=== PATIENT | female | born 1945 | race Caucasian/White ===

== ENCOUNTER → 2019-08-23 | Outpatient (CLI) | payer SELFPAY | PROVIDERS: Family Provider Nurse Practitioner Family; Visit Provider Specialist | DX: R91.8 Other nonspecific abnormal finding of lung field (principal); I25.10 Atherosclerotic heart disease of native coronary artery without angina pectoris; Z98.84 Bariatric surgery status; K80.20 Calculus of gallbladder without cholecystitis without obstruction | CPT/HCPCS: 71250 ==

== ENCOUNTER → 2019-09-26 11:08 | Outpatient (BNVA) | payer MEDICARE, OTHER, SELFPAY | PROVIDERS: Family Provider Nurse Practitioner Family; PCP Nurse Practitioner; Visit Provider Nurse Practitioner | DX: E11.9 Type 2 diabetes mellitus without complications (principal); I10 Essential (primary) hypertension; R82.90 Unspecified abnormal findings in urine | CPT/HCPCS: 80053; 80061; 81003; 83036; 85025; 87077; 87086; 87186 ==

== ENCOUNTER 2019-10-20 13:07 | Outpatient (CLI) | payer MEDICARE, OTHER, SELFPAY ==
--- NOTE | 2019-10-20 14:51 | XR_ITS ---
WS: [id number] SCREENING DEXA SCAN [facility] [employer] [facility] CLINICAL IN[facility] COMPARISON: April 03, 2015 FINDINGS: The L1-L4 bone mineral density measures 1.253 g/cm2. This corresponds to a T score score of 0.6 and Z score of 1.2. Left femoral neck bone mineral density measures 0.939 g/cm2. This corresponds to a T score of -0.5 an d Z score of 0.3. Right femoral neck bone mineral density measures 0.832 g/cm2. This corresponds to a T score -1.4of an d Z score of -0.6. Mean femoral neck bone mineral density measures 0.885 g/cm2. This corresponds to a T score of -1.0 an d Z score of -0.1. XR/XR DEXA axial skeleton* [id number] IMPRESSION: Osteopenia at the lower end of the range Patient's FRAX calculated 10 year probability for major osteoporotic fracture i s 13.9 % and osteoporotic hip fracture is 2.1%.
== END 2019-10-20 13:08 | disposition home or self-care (01) ==
PROVIDERS: Family Provider Nurse Practitioner Family; PCP Nurse Practitioner; Visit Provider Nurse Practitioner
DX: Z13.820 Encounter for screening for osteoporosis (principal)
CPT/HCPCS: 77080

== ENCOUNTER 2019-11-07 09:53 | Outpatient (CLI) | payer MEDICARE, OTHER, SELFPAY ==
--- NOTE | 2019-11-07 09:58 | MM_ITS ---
WS: [id number] BILATERAL DIGITAL SCREENING MAMMOGRAM WITH CAD CLINICAL INFORMATION: SCREENING HISTORY: Screening mammogram. No current complaints. COMPARISON: May 28, 2018 TECHNIQUE: Bilateral CC and MLO views. FINDINGS: Fatty-replaced breasts bilaterally. No suspicious focal mass, asymmetry, calcifications, or software solutions architect ural distortion. [employer] centered calcifications. No evidence of malignancy. MM/[place] [id number] IMPRESSION: BI-RADS: 2-Benign FOLLOW UP: 1 Year Follow-up Recommend return to annual screening mammography.
== END 2019-11-07 09:54 | disposition home or self-care (01) ==
LOC: RADSHAW 09:53
PROVIDERS: Family Provider Nurse Practitioner Family; PCP Nurse Practitioner; Visit Provider Obstetrics & Gynecology
DX: Z12.31 Encounter for screening mammogram for malignant neoplasm of breast (principal)
CPT/HCPCS: 77067

== ENCOUNTER 2020-12-03 12:51 | Outpatient (CLI) | payer MEDICARE, OTHER, SELFPAY ==
--- NOTE | 2020-12-03 12:59 | CT_ITS ---
WS: [id number] CT CHEST TECHNIQUE: Noncontrast CT of the chest with coronal and sagittal reformatted images. CLINICAL INFORMATION: PULMONARY NODULE COMPARISON: August 23, 2019 and . DLP: 1072.[address] scans at [facility] use at least one of these dose optimization techniques: automat ed exposure control; mA and/or kV adjustment per patient size (includes targeted exams where dose is matched to clinical indication); or iterative reconstruction. FINDINGS: Again seen are several small right upper and right lower noncalcified nodules measuring 2-3 mm in max imum dimension. These are unchanged from the prior examinations. No visualized left-sided nodules. No acute pulmonary infiltrates. No focal pneumonia or pleural fluid. Calcified granuloma left upper lob e. No mediastinal or hilar lymphadenopathy. No axillary lymphadenopathy. Vascular calcification includin g coronary. Adrenal glands are normal. Prior laparoscopic banding procedure. Cholelithiasis. Calcifie d gallstone in the gallbladder measuring 2.5 CM. Fatty atrophy of the pancreas. Splenic artery calcif ication. CT/CT chest wo con [id number] IMPRESSION: 1. Stable noncalcified 2-3 mm pulmonary nodules in the right lung. These are s table since 2. Mild chronic emphysematous changes. No acute pulmonary infiltrates. 3. Coronary calcification. 4. Laparoscopic banding procedure. 5. Large gallstone measuring 2.5 cm unchanged.
== END 2020-12-03 12:52 | disposition home or self-care (01) ==
LOC: RADWPI 12:56
PROVIDERS: PCP Nurse Practitioner Family; Visit Provider Specialist
DX: R91.1 Solitary pulmonary nodule (principal); I25.10 Atherosclerotic heart disease of native coronary artery without angina pectoris; K80.80 Other cholelithiasis without obstruction
CPT/HCPCS: 71250

== ENCOUNTER 2020-12-03 13:30 | Outpatient (CLI) | payer MEDICARE, OTHER, SELFPAY ==
--- NOTE | 2020-12-03 13:38 | MM_ITS ---
WS: [id number] BILATERAL SCREENING DIGITAL MAMMOGRAM WITH CAD HISTORY: SCREENING COMPARISON: 11/07/2019 and 05/28/2018 Bilateral CC and MLO views submitted. Computer aided detection analyzed. Breast composition: There are scattered areas of fibroglandular density. No suspicious masses, microc alcifications or architectural distortion. Benign calcifications in each breast. MM/[place] [id number] IMPRESSION: BI-RADS: 2-Benign FOLLOW UP: 1 Year Follow-up
== END 2020-12-03 13:31 | disposition home or self-care (01) ==
LOC: RADSHAW 13:36
PROVIDERS: PCP Nurse Practitioner Family; Visit Provider Obstetrics & Gynecology
DX: Z12.31 Encounter for screening mammogram for malignant neoplasm of breast (principal)
CPT/HCPCS: 77067

== ENCOUNTER 2021-02-22 12:10 | Inpatient (IN) | payer MEDICARE, OTHER, SELFPAY ==
[2021-02-22] VITALS (20 sets, daily range): BP systolic 110–142; BP diastolic 61–113; PULSE 66–169; RESP 15–20; TEMP 36.5–36.6; O2SAT 91–99; BMI 44.9
--- NOTE | 2021-02-22 12:27 | XR_ITS ---
WS: [id number] Portable AP upright chest, 02/22/2021 Clinical Data: new onset afib Comparison: Portable chest, 11/05/2018. Findings: No nodules, masses or effusions are seen. The heart is normal. The pulmonary vascularity is not increased. No pneumonia or pneumothorax is seen. The aortic arch and descending aorta show tortu osity. Monitor leads are on the chest wall. XR/XR chest 1V portable [id number] Impression: Atherosclerosis.
--- NOTE | 2021-02-22 12:27 | ECG_ITS ---
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 Measurements Intervals [place] Rate: 175 P: [place]: QRS: -26 QRSD: 76 T: 136 QT: 245 QTc: 419 Interpretive Statements ATRIAL FIBRILLATION WITH RAPID VENTRICULAR RESPONSE LOW QRS VOLTAGE IN PRECORDIAL LEADS [QRS DEFLECTION < 1.0 mV IN CHEST LEADS] MODERATE VOLTAGE CRITERIA FOR LVH, CONSIDER NORMAL VARIANT [MEETS CRITERIA IN ONE OF: R(aVL), S(V1), R(V5), R(V5/V6)+S(V1)] POSSIBLE ANTEROSEPTAL MYOCARDIAL INFARCTION [30 ms Q WAVE IN V1-V4], PROBABLY OLD MODERATE T-WAVE ABNORMALITY, CONSIDER LATERAL ISCHEMIA [-0.1+ mV T WAVE IN I/aVL/V5/V6] Compared to ECG 11/05/2018 23:34:41 T-wave abnormality now present Possible ischemia now present Myocardial infarct finding still present Electronically Signed On 02-22-2021 21:34:01 CDT by Mike Black M.D. [id number]
[2021-02-22] MEDS: aspirin 81 mg Chew Tablet 324 MG PO (12:42)
[2021-02-22 12:43] LABS: Basophils % 0.5 %; Eosinophils # 0.3 10^3/uL (0.0-0.8); Eosinophils % 3.1 %; Hematocrit 44.2 % (37.0-47.0); Hemoglobin 13.6 g/dL (11.5-15.3); Lymphocytes # 2.3 10^3/uL (0.8-4.8); Lymphocytes % 27.1 %; Mean Corpuscular HGB Conc 30.8 g/dL (30.0-36.0); Mean Corpuscular Hemoglobin 29.1 pg (28.0-34.0); Mean Corpuscular Volume 94.4 fL (81-99); Mean Platelet Volume 10.5 fL (7.4-10.4); Monocytes # 0.5 10^3/uL (0.2-0.9); Monocytes % 5.5 %; Neutrophils # 5.39 10^3/uL (1.8-7.7); Neutrophils % 63.4 %; Nucleated Red Blood Cells % 0 %; Platelet Count 259 10^3/cmm (130-400); Red Blood Count 4.68 10^6/uL (4.1-5.3); Red Cell Distribution Width 15.2 % (12.1-15.1); White Blood Count 8.5 10^3/uL (4.0-10.0)
--- NOTE | 2021-02-22 12:51 | W.ED.ARRPALP ---
HPI - Arrhythmia/Palpitations General: Chief Complaint: Arrhythmia/Palpitations Stated Complaint: poss afib Time Seen by Provider: 02/22/21 12:27 Source: patient Mode of arrival: ambulatory Limitations: no limitations History of Present Illness: HPI narrative: Patient reportedly seen by nurse practitioner at her primary care clinic today and diagnosed with arrhythmia. Patient does not know when arrhythmia started. She does not know when atrial fibrillation started. She has no chest pain or shortness of breath. She had no idea that she had tachycardia. Onset (ago): unknown Duration: constant Severity: mild Context: occurred during rest Arrhythmia history: other (No previous cardiac history.) Associated symptoms: Deny anxiety, cough, diaphoresis, muscle cramps, nausea, paresthesias, pre-syncope, sense of impending doom, short of breath, syncope or vomiting Treatments prior to arrival: other (None) Review of Systems Const: Denies: diaphoresis Eyes: Denies: change in vision ENMT: Denies: throat pain Card: Reports: edema and swelling of feet/ankles; Denies: chest pain, palpitations, irregular heart rhythm, lightheadedness, syncope, pre-syncope, dyspnea on exertion, orthopnea or leg pain with exertion Resp: Denies: dyspnea, wheezing or chest congestion GI: Denies: abdominal pain, nausea or vomiting : Denies: flank pain Musc: Denies: muscle cramps Skin/Breast: Denies: rash or pruritus Neuro: Denies: headache(s) or numbness in extremities Psych: Denies: anxiety Ki/Lymph: Denies: enlarged lymph nodes PFS ED PFSH: Medical History Arrhythmia Diabetes Hypertension Mixed hyperlipidemia Vitamin D deficiency Surgical History LAP-BAND surgery status Social History Smoking and tobacco status: never smoked Second hand smoke exposure: No Alcohol intake: never Desire information about alcohol rehabilitation?: No Counseling given: No Desire information about substance/drug rehabilitation?: No Counseling given: No Physical Exam Const: COMMON NORMALS: no acute distress, patient oriented x3, no limitations and well nourished GENERAL APPEARANCE: cooperative HENMT: COMMON NORMALS: normocephalic and atraumatic HEAD & SCALP: normocephalic and atraumatic FACE & SINUS: normal facial exam Eye: COMMON NORMALS: EOMs intact bilaterally Neck/C-Spine: COMMON NORMALS: full ROM, no lymphadenopathy, supple and no meningeal signs GENERAL: Yes normal visual inspection Lymph: LYMPHATIC: no lymphadenopathy noted Chest: COMMONS NORMALS: normal inspection of the chest and normal palpation of entire chest wall CHEST: No Ecchymosis present and No rash Resp: COMMON NORMALS: normal respiratory effort, No retractions and clear to auscultation bilaterally EFFORT & INSPECTION: No respiratory distress AUSCULTATION: clear to auscultation bilaterally Cardio: COMMON NORMALS: No murmurs present (Cardio) and Peripheral pulses 2+ throughout JUGULAR VENOUS DISTENTION: no JVD RATE: tachycardic RHYTHM: abnormal rhythm irregularly irregular BRUITS: no abdominal aortic bruits PERIPHERAL PULSES: Peripheral pulses 2+ throughout GI: COMMON NORMALS: Normal to inspection, nondistended, normoactive bowel sounds present and non-tender : COMMON NORMALS: Yes no CVA tenderness BLADDER/KIDNEY EXAM: Yes no CVA tenderness Back/Pelvis: COMMON NORMALS: no CVA tenderness Extremity: COMMON NORMALS: normal to inspection, full ROM and capillary refill normal Neuro: COMMON NORMALS: patient oriented x3, CN's II-XII intact bilaterally, no focal motor deficits and no sensory deficits noted MENINGEAL SIGNS: Yes no meningeal signs Psych: COMMON NORMALS: mental status grossly normal and Normal thought process present THOUGHT PROCESS: Normal thought process present Skin: COMMON NORMALS: no rashes or lesions noted and no wounds GENERAL SKIN EXAM: no rashes or lesions noted Course Vital Signs: Vital signs: Vital Signs Temperature 97.7 F 02/22/21 12:17 Pulse Rate 123 H 02/22/21 14:45 Respiratory Rate 18 02/22/21 14:45 Blood Pressure 134/100 02/22/21 14:45 Pulse Oximetry 98 02/22/21 14:45 MDM - Arrhythmia/Palpitations MDM Narrative: Medical decision making narrative: New onset atrial fibrillation with rapid ventricular rate. 1415: Discussed with oracle business analyst Dr. Johnston. He will see the patient as a customer support consultant. Continue present medications. 1442: Discussed case with hospitalist Dr. Terry. Stop heparin drip. Admit to cardiac stepdown unit. Differential Diagnosis: Differential diagnosis arrhythmia/palpitations: Likely palpitations and artial fibrillation Lab Data: Labs: Lab Results 02/22/21 02/22/21 02/22/21 Range/Units 12:35 12:35 12:35 WBC 8.5 (4.0-10.0) 10^3/ uL RBC 4.68 (4.1-5.3) 10^6/u L Hgb 13.6 (11.5-15.3) g/dL Hct 44.2 (37.0-47.0) % MCV 94.4 (81-99) fL MCH 29.1 (28.0-34.0) pg MCHC 30.8 (30.0-36.0) g/dL RDW 15.2 H (12.1-15.1) % Plt Count 259 (130-400) 10^3/c mm MPV 10.5 H (7.4-10.4) fL Neut % (Auto) 63.4 % Lymph % (Auto) 27.1 % [place] % (Auto) 5.5 % Eos % (Auto) 3.1 % Baso % (Auto) 0.5 % Neut # (Auto) 5.39 (1.8-7.7) 10^3/u L Lymph # (Auto) 2.3 (0.8-4.8) 10^3/u L [place] # (Auto) 0.5 (0.2-0.9) 10^3/u L Eos # (Auto) 0.3 (0.0-0.8) 10^3/u L Baso # (Auto) 0.0 (0.0-0.1) 10^3/u L Nucleated RBC % (a uto) 0 % Nucleated RBCs # 0.0 /100WBC APTT 30.1 (23.9-36.7) SECO NDS Sodium 141 (136-145) mmol/L Potassium 4.5 (3.5-5.1) mmol/L Chloride 107 (98-107) mmol/L Carbon Dioxide 22 (22-29) mmol/L Anion Gap 16.5 (5-19) BUN 24 H (8-23) mg/dL Creatinine 1.3 H (0.5-0.9) mg/dL GFR Calculation Not Reportable Glucose 156 H (65-115) mg/dL Calculated Osmolal ity 299 H (285-295) mOsm/k g Calcium 9.2 (8.5-10.5) mg/dL Magnesium (1.7-2.3) mg/dL Troponin T Baselin e (0-10) ng/L NT-Pro-B Natriuret Pep 5376 H (0-450) pg/mL TSH (0.27-4.20) uIU/ mL 02/22/21 02/22/21 Range/Units 12:35 12:35 WBC (4.0-10.0) 10^3/ uL RBC (4.1-5.3) 10^6/u L Hgb (11.5-15.3) g/dL Hct (37.0-47.0) % MCV (81-99) fL MCH (28.0-34.0) pg MCHC (30.0-36.0) g/dL RDW (12.1-15.1) % Plt Count (130-400) 10^3/c mm MPV (7.4-10.4) fL Neut % (Auto) % Lymph % (Auto) % [place] % (Auto) % Eos % (Auto) % Baso % (Auto) % Neut # (Auto) (1.8-7.7) 10^3/u L Lymph # (Auto) (0.8-4.8) 10^3/u L [place] # (Auto) (0.2-0.9) 10^3/u L Eos # (Auto) (0.0-0.8) 10^3/u L Baso # (Auto) (0.0-0.1) 10^3/u L Nucleated RBC % (a uto) % Nucleated RBCs # /100WBC APTT (23.9-36.7) SECO NDS Sodium (136-145) mmol/L Potassium (3.5-5.1) mmol/L Chloride (98-107) mmol/L Carbon Dioxide (22-29) mmol/L Anion Gap (5-19) BUN (8-23) mg/dL Creatinine (0.5-0.9) mg/dL GFR Calculation Glucose (65-115) mg/dL Calculated Osmolal ity (285-295) mOsm/k g Calcium (8.5-10.5) mg/dL Magnesium 1.8 (1.7-2.3) mg/dL Troponin T Baselin e 30 H (0-10) ng/L NT-Pro-B Natriuret Pep (0-450) pg/mL TSH 1.11 (0.27-4.20) uIU/ mL Imaging Data^: CXR: Radiologist's impression: [address] [id number] ReportSigned Patient: Rosa Wheatley #: [id number]: 1945cct#:[id number]/Sex: 75 / FADM Date: 02/22/21Loc: ERRoom/Bed:Attending Dr: Ordering Provider/Ordering MD: Milton Solis MD Date of Service: 02/22/21 Procedure(s): XR chest 1V portable [id number] Accession Number(s): [id number] Report Number: [id number] WS: [id number] Portable AP upright chest, 02/22/2021 Clinical Data: new onset afib Comparison: Portable chest, 11/05/2018. Findings: No nodules, masses or effusions are seen. The heart is normal. The pulmonary vascularity is not increased. No pneumonia or pneumothorax is seen. The aortic arch and descending aorta show tortuosity. Monitor leads are on the chest wall. XR/XR chest 1V portable [id number] Impression: Atherosclerosis. Dictated By:Kiki Suarez MDSigned By:Kiki Suarez MDSigned Date/Time:02/22/21 1310 EKG Data^: EKG 1: Attestation: I personally reviewed and interpreted this EKG as follows: EKG interpretation date: 02/22/21 EKG interpretation time: 12:30 Prior EKG tracings: not available for review Interpretation: Atrial fibrillation with rapid ventricular rate with heart rate 175. Left axis. Nonspecific ST-T changes. Normal T waves. Normal QRS. Normal QT interval. Normal T waves. No previous EKG to compare to. Other EKG comments: Chest X-Ray 02/22/21 12:27 Impression: Atherosclerosis. Critical Care Time Critical Care Time: Critical Care Time: Yes Total Critical Care Time: 50 Attestation: see orders. iv heparin; iv cardizem Discharge Plan Discharge Patient Disposition: Admitted As Inpatient Clinical Impression: Atrial fibrillation Qualifiers: Atrial fibrillation type: paroxysmal Qualified Code(s): I48.0 - Paroxysmal atrial fibrillation Condition: Stable Coding Level of Care Code ED Collector Of Internal Revenue for [facility] Fwd Exam Comprehensive
[2021-02-22 12:54] LABS: Partial Thromboplastin Time 30.1 SECONDS (23.9-36.7)
[2021-02-22 13:00] LABS: Troponin(5th) Baseline 30 ng/L (0-10)
[2021-02-22 13:08] LABS: Blood Urea Nitrogen 24 mg/dL (8-23); Calcium 9.2 mg/dL (8.5-10.5); Carbon Dioxide 22 mmol/L (22-29); Chloride 107 mmol/L (98-107); Glucose 156 mg/dL (65-115); NT Pro B Type Natriuretic Pept 5376 pg/mL (0-450); Osmolality Calculated 299 mOsm/kg (285-295); Sodium 141 mmol/L (136-145)
[2021-02-22 13:09] LABS: Anion Gap 16.5 (5-19); Potassium 4.5 mmol/L (3.5-5.1)
[2021-02-22] MEDS: heparin 5,000 unit/mL INJ 1 mL 4000 UNIT IVP (13:44)
[2021-02-22 13:45] LABS: Magnesium 1.8 mg/dL (1.7-2.3)
[2021-02-22] MEDS: heparin drip 25,000 UNIT/500 ML PREMIX 29.39 UNIT IV (13:47)
[2021-02-22 14:13] LABS: Thyroid Stimulating Hormone 1.11 uIU/mL (0.27-4.20)
--- NOTE | 2021-02-22 14:27 | ECG_ITS ---
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 Measurements Intervals [place] Rate: 121 P: [place]: QRS: -19 QRSD: 84 T: 144 QT: 285 QTc: 405 Interpretive Statements ATRIAL FIBRILLATION WITH RAPID VENTRICULAR RESPONSE LOW QRS VOLTAGE IN PRECORDIAL LEADS [QRS DEFLECTION < 1.0 mV IN CHEST LEADS] MODERATE VOLTAGE CRITERIA FOR LVH, CONSIDER NORMAL VARIANT [MEETS CRITERIA IN ONE OF: R(aVL), S(V1), R(V5), R(V5/V6)+S(V1)] POSSIBLE ANTEROSEPTAL MYOCARDIAL INFARCTION [30 ms Q WAVE IN V1-V4], PROBABLY OLD MODERATE T-WAVE ABNORMALITY, CONSIDER LATERAL ISCHEMIA [-0.1+ mV T WAVE IN I/aVL/V5/V6] Compared to ECG 02/22/2021 12:28:14 No significant changes Electronically Signed On 02-22-2021 21:37:38 CDT by Mike Black M.D. [id number]
[2021-02-22 15:11] LABS: Troponin 5 2HR 33.68 ng/L (0-10); Troponin 5 2HR Delta 3.68 ABS# (0-10)
[2021-02-22 15:19] LABS: NT Pro B Type Natriuretic Pept 4711 pg/mL (0-450); Procalcitonin 0.06 ng/mL (0-0.5)
--- NOTE | 2021-02-22 15:33 | ED_ITS ---
HPI - Arrhythmia/Palpitations General: Chief Complaint: Arrhythmia/Palpitations Stated Complaint: poss afib Time Seen by Provider: 02/22/21 12:27 Source: patient Mode of arrival: ambulatory Limitations: no limitations History of Present Illness: Context: occurred during rest Treatments prior to arrival: other (None) [facility] PFSH: Medical History Arrhythmia Diabetes Hypertension Mixed hyperlipidemia Vitamin D deficiency Surgical History LAP-BAND surgery status Social History Smoking and tobacco status: never smoked Second hand smoke exposure: No Alcohol intake: never Desire information about alcohol rehabilitation?: No Counseling given: No Desire information about substance/drug rehabilitation?: No Counseling given: No Course Vital Signs: Vital signs: Vital Signs Temperature 97.7 F 02/22/21 12:17 Pulse Rate 134 H 02/22/21 15:30 Respiratory Rate 15 02/22/21 15:30 Blood Pressure 110/88 02/22/21 15:30 Pulse Oximetry 98 02/22/21 15:30 MDM - Arrhythmia/Palpitations Lab Data: Labs: Lab Results 02/22/21 02/22/21 02/22/21 Range/Units 12:35 12:35 12:35 WBC 8.5 (4.0-10.0) 10^3/ uL RBC 4.68 (4.1-5.3) 10^6/u L Hgb 13.6 (11.5-15.3) g/dL Hct 44.2 (37.0-47.0) % MCV 94.4 (81-99) fL MCH 29.1 (28.0-34.0) pg MCHC 30.8 (30.0-36.0) g/dL RDW 15.2 H (12.1-15.1) % Plt Count 259 (130-400) 10^3/c mm MPV 10.5 H (7.4-10.4) fL Neut % (Auto) 63.4 % Lymph % (Auto) 27.1 % [place] % (Auto) 5.5 % Eos % (Auto) 3.1 % Baso % (Auto) 0.5 % Neut # (Auto) 5.39 (1.8-7.7) 10^3/u L Lymph # (Auto) 2.3 (0.8-4.8) 10^3/u L [place] # (Auto) 0.5 (0.2-0.9) 10^3/u L Eos # (Auto) 0.3 (0.0-0.8) 10^3/u L Baso # (Auto) 0.0 (0.0-0.1) 10^3/u L Nucleated RBC % (a uto) 0 % Nucleated RBCs # 0.0 /100WBC APTT 30.1 (23.9-36.7) SECO NDS Sodium 141 (136-145) mmol/L Potassium 4.5 (3.5-5.1) mmol/L Chloride 107 (98-107) mmol/L Carbon Dioxide 22 (22-29) mmol/L Anion Gap 16.5 (5-19) BUN 24 H (8-23) mg/dL Creatinine 1.3 H (0.5-0.9) mg/dL GFR Calculation Not Reportable Glucose 156 H (65-115) mg/dL Calculated Osmolal ity 299 H (285-295) mOsm/k g Calcium 9.2 (8.5-10.5) mg/dL Magnesium (1.7-2.3) mg/dL Troponin T Baselin e (0-10) ng/L Troponin T 120 Min [place] (0-10) ng/L Delta Troponin T (0-10) ABS# NT-Pro-B Natriuret Pep 5376 H (0-450) pg/mL Procalcitonin (0-0.5) ng/mL TSH (0.27-4.20) uIU/ mL 02/22/21 02/22/21 02/22/21 Range/Units 12:35 12:35 14:44 WBC (4.0-10.0) 10^3/ uL RBC (4.1-5.3) 10^6/u L Hgb (11.5-15.3) g/dL Hct (37.0-47.0) % MCV (81-99) fL MCH (28.0-34.0) pg MCHC (30.0-36.0) g/dL RDW (12.1-15.1) % Plt Count (130-400) 10^3/c mm MPV (7.4-10.4) fL Neut % (Auto) % Lymph % (Auto) % [place] % (Auto) % Eos % (Auto) % Baso % (Auto) % Neut # (Auto) (1.8-7.7) 10^3/u L Lymph # (Auto) (0.8-4.8) 10^3/u L [place] # (Auto) (0.2-0.9) 10^3/u L Eos # (Auto) (0.0-0.8) 10^3/u L Baso # (Auto) (0.0-0.1) 10^3/u L Nucleated RBC % (a uto) % Nucleated RBCs # /100WBC APTT (23.9-36.7) SECO NDS Sodium (136-145) mmol/L Potassium (3.5-5.1) mmol/L Chloride (98-107) mmol/L Carbon Dioxide (22-29) mmol/L Anion Gap (5-19) BUN (8-23) mg/dL Creatinine (0.5-0.9) mg/dL GFR Calculation Glucose (65-115) mg/dL Calculated Osmolal ity (285-295) mOsm/k g Calcium (8.5-10.5) mg/dL Magnesium 1.8 (1.7-2.3) mg/dL Troponin T Baselin e 30 H (0-10) ng/L Troponin T 120 Min [place] 33.68 H (0-10) ng/L Delta Troponin T 3.68 (0-10) ABS# NT-Pro-B Natriuret Pep (0-450) pg/mL Procalcitonin (0-0.5) ng/mL TSH 1.11 (0.27-4.20) uIU/ mL 02/22/21 Range/Units 14:44 WBC (4.0-10.0) 10^3/ uL RBC (4.1-5.3) 10^6/u L Hgb (11.5-15.3) g/dL Hct (37.0-47.0) % MCV (81-99) fL MCH (28.0-34.0) pg MCHC (30.0-36.0) g/dL RDW (12.1-15.1) % Plt Count (130-400) 10^3/c mm MPV (7.4-10.4) fL Neut % (Auto) % Lymph % (Auto) % [place] % (Auto) % Eos % (Auto) % Baso % (Auto) % Neut # (Auto) (1.8-7.7) 10^3/u L Lymph # (Auto) (0.8-4.8) 10^3/u L [place] # (Auto) (0.2-0.9) 10^3/u L Eos # (Auto) (0.0-0.8) 10^3/u L Baso # (Auto) (0.0-0.1) 10^3/u L Nucleated RBC % (a uto) % Nucleated RBCs # /100WBC APTT (23.9-36.7) SECO NDS Sodium (136-145) mmol/L Potassium (3.5-5.1) mmol/L Chloride (98-107) mmol/L Carbon Dioxide (22-29) mmol/L Anion Gap (5-19) BUN (8-23) mg/dL Creatinine (0.5-0.9) mg/dL GFR Calculation Glucose (65-115) mg/dL Calculated Osmolal ity (285-295) mOsm/k g Calcium (8.5-10.5) mg/dL Magnesium (1.7-2.3) mg/dL Troponin T Baselin e (0-10) ng/L Troponin T 120 Min [place] (0-10) ng/L Delta Troponin T (0-10) ABS# NT-Pro-B Natriuret Pep 4711 H (0-450) pg/mL Procalcitonin 0.06 (0-0.5) ng/mL TSH (0.27-4.20) uIU/ mL EKG Data^: EKG 2: Attestation: I personally reviewed and interpreted this EKG as follows: EKG interpretation date: 02/22/21 EKG interpretation time: 14:50 Prior EKG tracings: available for review Interpretation: PE EKG at 1446 shows atrial fibrillation with rapid ventricular rate with heart rate of 121. Unchanged from previous EKG except for rate. Patient has left axis. Normal QRS. Normal QT interval. Normal T wave. Nonspecific ST-T changes. Impression atrial fibrillation with rapid ventricular rate left axis. Other EKG comments: Chest X-Ray 02/22/21 12:27 Impression: Atherosclerosis. Critical Care Time Critical Care Time: Critical Care Time: Yes Total Critical Care Time: 50 Attestation: IV heparin, IV Cardizem. See orders. Cardiology consult. Discharge Plan Discharge Patient Disposition: Admitted As Inpatient Admit Provider: Pete Stewart Clinical Impression: Atrial fibrillation Qualifiers: Atrial fibrillation type: paroxysmal Qualified Code(s): I48.0 - Paroxysmal atrial fibrillation Condition: Stable Coding Level of Care Code ED Explosive Ordnance Technician for Nathan Chacko
[2021-02-22 15:36] LABS: Iron 56 ug/dL (37-145); Total Iron Binding Capacity 280 mcg/dl; Unsaturated Iron Binding 224 ug/dL (112-347)
[2021-02-22] MEDS: dilTIAZem 60 mg Tablet PO ×2 (16:40→20:54)
[2021-02-22] MEDS: famotidine 20 mg/2 mL INJ IVP (16:40)
[2021-02-22] MEDS: sodium chloride 0.9% 1,000 ML 75 ML IV (16:40)
--- NOTE | 2021-02-22 17:01 | PC.NURSE ---
cardizem in creased from 10 to 15 patient brought to unit and RN from ER reported Cardizem GTT running at 10
--- NOTE | 2021-02-22 17:07 | P.HP_ITS ---
Providers/Chief Complaint Admitting Physician: Pete Stewart MD Primary Care Provider: BORA Bautista Chief Complaint: poss afib History of Present Illness Rosa Wheatley is a 75 year old female with past medical history of hypertension, type 2 diabetes mellitus, hyperlipidemia, KEANU not on CPAP since 2018 posterior lap band surgery presents to the ER today after being referred from her primary care's office. Patient states that she had went to her primary care office to get blood work and found to have a fast irregular heartbeat so sent to the ER. Patient denies any chest pain, difficulty breathing, nausea vomiting, dizziness, headache both at rest or on exertion. Patient states she actually feels fine. Patient denies any fever, cough, expectoration, dysuria, diarrhea, known exposure to COVID-19. In the ER patient was found to have a heart rate of 146 and started on Cardizem drip and heparin drip. Review of Systems General: Reports: 10 or more systems reviewed and unremarkable except in HPI and below Const: Denies: fever(s), chills, body aches, change in appetite, change in weight, malaise, night sweats, diaphoresis, change in sleep pattern, daytime sleepiness or snoring Eyes: Denies: change in vision, blurry vision, photophobia, eye discomfort or eye discharge ENMT: Denies: throat pain, enlarged tonsils, hoarseness, mouth pain, oral sores, dry mouth, tinnitus, nasal congestion or post nasal drip Card: Denies: chest pain, palpitations, irregular heart rhythm, edema, swelling of feet/ankles, lightheadedness, syncope, pre-syncope, dyspnea on exertion, orthopnea, leg pain with exertion or acrocyanosis Resp: Denies: dyspnea, productive cough, non-productive cough, wheezing, stridor, pain on inspiration, change in phlegm color, hemoptysis or chest congestion GI: Denies: abdominal pain, nausea, vomiting, hematemesis, coffee ground emesis, dysphagia, heartburn, diarrhea, constipation, bloating, GI cramping, change in bowel habits, pain on defecation, hematochezia or melena : Denies: flank pain, dysuria, urinary frequency, urinary urgency, urinary hesitancy, nocturia or hematuria Musc: Denies: neck pain, back pain, extremity pain, joint pain, joint swelling, joint redness, joint stiffness or limited range of motion Neuro: Denies: headache(s), numbness in extremities, weakness in extremities, sensory changes, lack of coordination, difficulty walking, frequent falls, dizziness, vertigo, confusion, Slurred speech present, difficulty communicating thoughts or seizure-like activity Psych: Denies: anxiety, depression, mood swings, panic attacks, hopelessness or irritability Endo: Denies: polyuria, polydipsia, tired all the time, cold intolerance, excessive sweating, flushing or heat intolerance Ki/Lymph: Denies: easy bruising or easy bleeding All/Imm: Denies: tongue swelling, facial swelling or acute wheezing Medications/Allergies Home Medications Medication Instructions Recorded Confirmed Last Taken Type hydroxyzine HCl 25 mg tablet 25 mg PO BID PRN #60 tab 09/20/19 02/22/21 Unknown Rx aspirin 81 mg tablet,delayed 81 mg PO DAILY 06/25/20 02/22/21 02/21/21 History release allopurinol 100 mg tablet 100 mg PO DAILY 02/22/21 02/22/21 02/21/21 History glimepiride 2 mg PO DAILY 02/22/21 02/22/21 02/21/21 History lisinopril 20 mg PO DAILY 02/22/21 02/22/21 02/21/21 History Allergies Allergy/AdvReac Type Severity Reaction Status Date / Time baclofen Allergy Mild numbness Verified 02/22/21 09:35 PFSH Acute PFSH: Medical History Arrhythmia Diabetes Hypertension Mixed hyperlipidemia Vitamin D deficiency Surgical History LAP-BAND surgery status Family History (Updated 02/22/21 @ 17:09 by Pete Stewart MD) Denies family history of Clotting disorder Chronic kidney disease (CKD) Social History (Updated 02/22/21 @ 17:09 by Pete Stewart MD) Smoking and tobacco status: former smoker Second hand smoke exposure: No Alcohol intake: never Desire information about alcohol rehabilitation?: No Counseling given: No Desire information about substance/drug rehabilitation?: No Counseling given: No Vitals/I&O/Wt Last Vital Signs Temp 97.7 F 02/22/21 12:17 Pulse 132 H 02/22/21 15:33 Resp 20 H 02/22/21 15:33 BP 110/88 02/22/21 15:33 Pulse Ox 99 02/22/21 15:33 02/22/21 02/22/21 02/22/21 06:59 14:59 22:59 Intake Total 110.589 / 110.589 Balance 110.589 / 110.589 Weight last 48 hrs Weight 122.47 kg Physical Exam Narrative: EXAM NARRATIVE: General: No acute distress, AO x3, morbidly obese HEENT: PERRLA, pupils bilaterally equal and reactive Chest: Normal vesicular breath sounds, no added sounds, equal good air entry bilaterally CVS: S1-S2 irregularly irregular, tachycardia present, no gallops, no rubs Abdomen: Soft, nontender, no organomegaly, bowel sounds present Neuro: No focal deficits, no facial deformity, AO x3, power 5/5 in all limbs Data : 02/22/21 12:35 02/22/21 12:35 Micro: Microbiology 02/22/21 14:57 Blood Culture - Preliminary Blood SPECIMEN COLLECTED 02/22/21 14:55 Blood Culture - Preliminary Blood SPECIMEN COLLECTED A&P Assessment and plan (1) Atrial fibrillation: Status: Acute Qualifiers: Atrial fibrillation type: paroxysmal Qualified Code(s): I48.0 - Paroxysmal atrial fibrillation (2) Diabetes: Status: Chronic Qualifiers: Diabetes mellitus type: type 2 Diabetes mellitus prison insulin use: without terminal operator use Diabetes mellitus complication status: without complication Qualified Code(s): E11.9 - Type 2 diabetes mellitus without complications (3) Hypertension: Status: Chronic Qualifiers: Hypertension type: essential hypertension Qualified Code(s): I10 - Essential (primary) hypertension Additional A&P Information Atrial fibrillation with rapid ventricular response: Continue with Cardizem drip. Start patient on p.o. Cardizem 60 mg every 6 hours. We will try to wean off Cardizem drip accordingly. Check TSH, HbA1c, lipid panel, echocardiogram. Patient most likely has obstructive sleep apnea. Will benefit from outpatient sleep study for CPAP. Discussed with patient for need to be on a possible anticoagulation given higher risk of thromboembolic stroke in patients with atrial fibrillation. Patient agrees to be on anticoagulation for now. Start patient on full dose Lovenox. Stop heparin drip. If patient's heart rate does not respond in next 24 hours to Cardizem drip will consult cardiology for possible electrocardioversion as patient does not have any history of atrial fibrillation in the past. Start patient on IV fluids normal saline at 75 cc/h. Elevated troponin: No active chest pain. Cycle troponins. Baseline troponin mildly elevated most likely secondary to demand ischemia from tachycardia. Continue with home dose of aspirin. Not on statin at home. Check lipid panel. Hypertension: Goal blood pressure less than 140/90 mmHg. For now hold off on lisinopril. We will continue to monitor blood pressures. Type 2 diabetes mellitus: Check HbA1c. Stop OHA. Start patient insulin sliding scale at moderate dose. CKD: Baseline around 1.3-1.4. Creatinine at baseline. Continue to monitor. Continue other chronic oral medication including allopurinol. Full code. Full dose Lovenox will help with DVT prophylaxis. Cardiac diet. Attestations Medical Necessity Statement*: Admission for more than 2 midnights for management of atrial fibrillation with rapid ventricular response. Time Spent in Patient Care: Greater than 35 minutes (>than 50% of time spent in counselling and/or direct pt care on unit) . 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
--- NOTE | 2021-02-22 18:27 | ECG_ITS ---
[facility] Test Date: 2021-02-22 Pat Name: Rosa Wheatley Department: Room: 102 Gender: Female Director Emergency Services: : 1945 Requested By: Milton Castano Order Number: [id number] Courtney MD: Mike Black M.D. Measurements Intervals [place] Rate: 106 P: MA: QRS: -20 QRSD: 80 T: 114 QT: 327 QTc: 436 Interpretive Statements ATRIAL FIBRILLATION WITH RAPID VENTRICULAR RESPONSE LOW QRS VOLTAGE IN PRECORDIAL LEADS [QRS DEFLECTION < 1.0 mV IN CHEST LEADS] VOLTAGE CRITERIA FOR LVH [MEETS CRITERIA IN ONE OF: R(aVL), S(V1), R(V5), R(V5/V6)+S(V1)] POSSIBLE ANTEROSEPTAL MYOCARDIAL INFARCTION [30 ms Q WAVE IN V1-V4], PROBABLY OLD MODERATE T-WAVE ABNORMALITY, CONSIDER LATERAL ISCHEMIA [-0.1+ mV T WAVE IN I/aVL/V5/V6] Compared to ECG 02/22/2021 14:46:54 No significant changes Electronically Signed On 02-22-2021 21:35:51 CDT by Mike Black M.D. [id number]
--- NOTE | 2021-02-22 19:33 | PC.NURSE ---
Received bedside report from CRISTAL Myers. Patient here with afib with RVR. Patient denies any s/s of afib. Reports feeling good . Heart rate currently 70s to 90s in afib. Decreased Cardizem drip to 10ml/hr at this time. Discussed use of Lovenox related to patient's increased heart rate. Patient verbalized complete understanding. Patient does report concerns regarding having only one kidney and wants to make sure her medications are appropriate for this condition.
[2021-02-22 19:49] LABS: Glucose Point of Care 86 mg/dL (70-110)
--- NOTE | 2021-02-22 20:28 | PM.CONSULT ---
Providers/Reason For Consult Consulting Physician/Specialty*: Cardiology Reason for Consult*: New onset of atrial fibrillation Attending Physician: Pete Stewart MD Primary Care Provider: BORA Bautista History of Present Illness History of Present Illness Rosa Wheatley is a 75 year old female past medical history significant for hypertension obstructive sleep apnea for the past few weeks was feeling fatigue short of breath meant to see primary care physician she was noted to be in A. fib with rapid ventricle response it is the reason she was sent to ER. Cardiac markers troponin was mildly elevated which could be secondary to A. fib with RVR. She was started on Cardizem drip and we have been asked to assist in her care. Currently patient heart rate still in 1 teens. She denies any chest pain PND orthopnea. She admits to being generalized fatigue and short of breath. She denies prior history of heart problem valvular problem and thyroid problem. Review of Systems General: Reports: 10 or more systems reviewed and unremarkable except in HPI and below Const: Denies: fever(s), chills, body aches, change in appetite, change in weight, malaise, night sweats, diaphoresis, change in sleep pattern, daytime sleepiness or snoring Eyes: Denies: change in vision, blurry vision, photophobia, eye discomfort or eye discharge ENMT: Denies: throat pain, enlarged tonsils, hoarseness, mouth pain, oral sores, dry mouth, tinnitus, nasal congestion or post nasal drip Card: Denies: chest pain, palpitations, irregular heart rhythm, edema, swelling of feet/ankles, lightheadedness, syncope, pre-syncope, dyspnea on exertion, orthopnea, leg pain with exertion or acrocyanosis Resp: Denies: dyspnea, productive cough, non-productive cough, wheezing, stridor, pain on inspiration, change in phlegm color, hemoptysis or chest congestion GI: Denies: abdominal pain, nausea, vomiting, hematemesis, coffee ground emesis, dysphagia, heartburn, diarrhea, constipation, bloating, GI cramping, change in bowel habits, pain on defecation, hematochezia or melena : Denies: flank pain, dysuria, urinary frequency, urinary urgency, urinary hesitancy, nocturia or hematuria Musc: Denies: neck pain, back pain, extremity pain, joint pain, joint swelling, joint redness, joint stiffness, limited range of motion or muscle cramps Skin/Breast: Denies: rash or pruritus Neuro: Denies: headache(s), numbness in extremities, weakness in extremities, sensory changes, lack of coordination, difficulty walking, frequent falls, dizziness, vertigo, confusion, Slurred speech present, difficulty communicating thoughts or seizure-like activity Psych: Denies: anxiety, depression, mood swings, panic attacks, hopelessness or irritability Endo: Denies: polyuria, polydipsia, tired all the time, cold intolerance, excessive sweating, flushing or heat intolerance Ki/Lymph: Denies: easy bruising, easy bleeding or enlarged lymph nodes All/Imm: Denies: tongue swelling, facial swelling or acute wheezing Meds/Allergies Home Medications and Allergies Home Medications Medication Instructions Recorded Confirmed Last Taken Type hydroxyzine HCl 25 mg tablet 25 mg PO BID PRN #60 tab 09/20/19 02/22/21 Unknown Rx aspirin 81 mg tablet,delayed 81 mg PO DAILY 06/25/20 02/22/21 02/21/21 History release allopurinol 100 mg tablet 100 mg PO DAILY 02/22/21 02/22/21 02/21/21 History glimepiride 2 mg PO DAILY 02/22/21 02/22/21 02/21/21 History lisinopril 20 mg PO DAILY 02/22/21 02/22/21 02/21/21 History Allergies Allergy/AdvReac Type Severity Reaction Status Date / Time baclofen Allergy Mild numbness Verified 02/22/21 09:35 Current Medications Current Medications Generic Name Dose Route Start Last Admin Trade Name Azamq PRN Reason Stop Dose Admin Diltiazem HCl 60 mg 02/22/21 14:45 02/22/21 16:40 Diltiazem 60 Mg Tablet PO 60 mg Q6H SANIYA Administration Famotidine 20 mg 02/22/21 15:50 02/22/21 16:40 Famotidine 20 Mg/2 Ml Inj IVP 20 mg Q12H SANIYA Administration Diltiazem HCl 125 mg/ Sodium 125 mls @ 0 mls/hr 02/22/21 12:45 02/22/21 19:20 Chloride IV 10 mg/hr .Q0M SANIYA 10 mls/hr Titration Protocol Per Protocol Sodium Chloride 1,000 mls @ 75 mls/hr 02/22/21 14:45 02/22/21 16:40 Sodium Chloride 0.9% IV 75 mls/hr .[id number] SANIYA Administration Insulin Aspart 0 unit 02/22/21 18:00 02/22/21 19:28 Insulin Aspart 100 Unit/1 Ml SUBCUT Not Given WM&BEDTIME SANIYA Protocol PFSH Acute PFSH: Medical History Arrhythmia Diabetes Hypertension Mixed hyperlipidemia Vitamin D deficiency Surgical History LAP-BAND surgery status Family History (Updated 02/22/21 @ 17:09 by Pete Stewart MD) Denies family history of Clotting disorder Chronic kidney disease (CKD) Social History (Updated 02/22/21 @ 17:09 by Pete Stewart MD) Smoking and tobacco status: former smoker Second hand smoke exposure: No Alcohol intake: never Desire information about alcohol rehabilitation?: No Counseling given: No Desire information about substance/drug rehabilitation?: No Counseling given: No Vitals/I&O/Wt Last Vital Signs Temp 97.8 F 02/22/21 19:32 Pulse 90 02/22/21 19:32 Resp 16 02/22/21 19:32 BP 142/81 02/22/21 19:32 Pulse Ox 97 02/22/21 19:32 02/22/21 02/22/21 02/22/21 06:59 14:59 22:59 Intake Total 153.089 / 153.089 Balance 153.089 / 153.089 Weight last 48 hrs Weight 270 lb Physical Exam Narrative: EXAM NARRATIVE: GENERAL: Patient is alert, awake and oriented x3. NECK: No jugular vein distension. HEENT: No cyanosis. No icterus. No pallor. HEART: Irregularly irregular S1 and S2. No murmur, rub or gallop. LUNGS: Clear to auscultate bilaterally. ABDOMEN: Soft, nontender and nondistended. Positive bowel sounds. No guarding, rebound or tenderness. CENTRAL NERVOUS SYSTEM: Grossly nonfocal. EXTREMITIES: Lower extremities without edema bilaterally. Data Micro: Micro: Microbiology 02/22/21 14:57 Blood Culture - Pr eliminary Blood SPECIMEN COLLEC OTILIO 02/22/21 14:55 Blood Culture - Pr eliminary Blood SPECIMEN [facility] A&P Assessment and plan (1) Atrial fibrillation: [id number] score more than 4. Discussed with the patient regarding necessity of anticoagulation, patient agrees to it. We will start patient on oral anticoagulation. I also add beta-paloma to the Cardizem. Further plan will be advised as per progress of the patient. Once slow down will ask for echocardiogram to assess LV function or any valvular abnormality. Status: Acute Qualifiers: Atrial fibrillation type: paroxysmal Qualified Code(s): I48.0 - Paroxysmal atrial fibrillation (2) Mixed hyperlipidemia: Continue statin Status: Acute (3) Hypertension: Optimize medicine to keep blood pressure optimally controlled. Status: Chronic Qualifiers: Hypertension type: essential hypertension Qualified Code(s): I10 - Essential (primary) hypertension (4) Diabetes: As per medicine Status: Chronic Qualifiers: Diabetes mellitus type: type 2 Diabetes mellitus intermission coordinator insulin use: without intermission coordinator use Diabetes mellitus complication status: without complication Qualified Code(s): E11.9 - Type 2 diabetes mellitus without complications Consult Attestations Medical Necessity Statement: Patient require continuation hospitalization for above defined care. I am expecting the stay to cross more than 2 midnights. 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
[2021-02-22 20:33] LABS: Glucose Point of Care 98 mg/dL (70-110)
[2021-02-22 20:44] LABS: Troponin 5 6HR 40.47 ng/L (0-10); Troponin 5 6HR Delta 10.47 ng/L (0-12)
[2021-02-22] MEDS: rivaroxaban 10 mg Tablet 20 MG PO (20:54)
[2021-02-22] MEDS: metoprolol tartrate 25 mg Tablet PO (20:54)
--- NOTE | 2021-02-22 22:16 | PC.NURSE ---
Patient up to bathroom. Heart rate currently running at mid60s to low 80s. Decreased cardizem drip to 5ml/hr.
--- NOTE | 2021-02-22 23:59 | PC.NURSE ---
Addendum entered by Ghazala Sutton RN 02/23/21 01:13: Telemetry strips printed and placed in chart. Original Note: Patient's current heart rate 50 with decreases to low 40s. Informed Dr Soto and received telephone orders to stop Cardizem drip and to change PO Cardizem from 60mg every 6 hours to Cardizem ER PO 180mg to begin at 0900. RBVO. Patient denies any symptoms at this time.
[2021-02-23] VITALS (31 sets, daily range): BP systolic 94–146; BP diastolic 40–98; PULSE 62–157; RESP 20–22; TEMP 36.4–36.8; O2SAT 87–95
[2021-02-23] MEDS: famotidine 20 mg/2 mL INJ IVP ×2 (03:15→18:15)
[2021-02-23] MEDS: sodium chloride 0.9% 1,000 ML 75 ML IV (03:19)
--- NOTE | 2021-02-23 05:00 | USCV_ITS ---
Rosa Wheatley Age: 75 Gender: F : 1945 Exam Date: 02/23/2021 15:41 Ordering Phys: Pete Stewart MD Technologist: Dorina Sin [place] [facility] [place]: New afib BP: / HR: 91 Rhythm: Atrial fibrillation Technical Quality: Fair MEASUREMENTS (Male / Female) Normal Values 2D ECHO LV Diastolic Diameter PLAX 2.8 cm 4.2 - 5.9 / 3.9 - 5.3 cm LV Systolic Diameter PLAX 1.9 cm LV Chamber Size 3.5 cm IVS Diastolic Thickness 2.0 cm 0.6 - 1.0 / 0.6 - 0.9 cm IVS Systolic Thickness 2.0 cm LVPW Diastolic Thickness 1.2 cm 0.6 - 1.0 / 0.6 - 0.9 cm LVPW Systolic Thickness 1.4 cm RV Chamber Size 1.9 cm LVOT Diameter 2.1 cm LV Ejection Fraction 2D Teich 62.5 % LV Ejection Fraction MOD 2C 51.5 % LV Ejection Fraction 2C AL 60.9 % LA Diameter 3.5 cm LA Width 3.5 cm LA Height 6.0 cm RA Width 2.7 cm RA Height 5.7 cm Aorta at Sinotubular Diameter 2.5 cm M-MODE LV Diastolic Diameter MM 4.1 cm 4.2 - 5.9 / 3.9 - 5.3 cm LV Systolic Diameter MM 2.5 cm LV Ejection Fraction MM Teich 70.1 % IVS Diastolic Thickness MM 1.7 cm 0.6 - 1.0 / 0.6 - 0.9 cm IVS Systolic Thickness MM 2.2 cm LVPW Diastolic Thickness MM 1.6 cm 0.6 - 1.0 / 0.6 - 0.9 cm LVPW Systolic Thickness MM 1.9 cm RV Diastolic Diameter MM 1.9 cm Aortic Annulus Diameter 3.5 cm LA Ao Ratio MM 1.1 MV E Point Septal Separation 0.9 cm DOPPLER AV Peak Velocity 120.0 cm/s LVOT Peak Velocity 84.0 cm/s AV Area Cont Eq vti 2.4 cm squared AV Area Cont Eq pk 2.4 cm squared MV Area PHT 4.0 cm squared MV E' Velocity 146.0 cm/s TR Peak Velocity 225.0 cm/s TR Peak Gradient 20.3 mmHg TV Peak E Velocity 88.0 cm/s Right Atrial Pressure 3.0 mmHg Pulmonary Artery Systolic Pressu 23.3 mmHg PV Peak Velocity 52.0 cm/s RV Acceleration Time 0.1 s RV Ejection Time 0.2 s RV AcT/ET 0.4 FINDINGS Left Ventricle Normal left ventricular cavity size. Normal left ventricular systolic function. No regional wall motion abnormalities. Left ventricular ejection fraction is estimated at 60 %. In the presence of atrial fibrillation diastolic function cannot be assessed accurately. Right Ventricle The right ventricle is normal in size and function. Right Atrium The right atrium is normal in size. Left Atrium The left atrium is normal in size. Mitral Valve Moderately thickened mitral valve. No mitral valve stenosis. Moderate mitral valve regurgitation. Aortic Valve Moderate aortic valve calcification. No aortic valve stenosis. No aortic valve regurgitation. Tricuspid Valve Mild tricuspid valve regurgitation. Pulmonic Valve Structurally normal pulmonic valve without significant stenosis. There is no pulmonic regurgitation. Pericardium Normal pericardium without effusion. Aorta Normal ascending aorta dimension. CONCLUSIONS 1-Normal left ventricular cavity size. Normal left ventricular systolic function. No regional wall motion abnormalities. Left ventricular ejection fraction is estimated at 60 %. In the presence of atrial fibrillation diastolic function cannot be assessed accurately. 2-Moderately thickened mitral valve. No mitral valve stenosis. Moderate mitral valve regurgitation. 3-Moderate aortic valve calcification. No aortic valve stenosis. No aortic valve regurgitation. 4-Mild tricuspid valve regurgitation. 5-There is no pericardial effusion. 6-Pulmonary artery systolic pressure is within normal limits. 7-Right atrial pressure is around 5 mm of mercury. 8-Ehen compared to the prior echocardiogram dated May 01, 2016 patient is in atrial fibrillation now. Amanda Soto MD (Electronically Signed) Final Date: 24 February 2021 16:33 S
--- NOTE | 2021-02-23 05:02 | PC.NURSE ---
Patient's heart elevating to 150s during exertion. Patient has had mostly controlled rate 80 to upper 90s. Patient up to bathroom and heart elevating. Currently recovering to 110s. Informed Dr Hendrickson and received order to give am metoprolol and cardizem now.
[2021-02-23] MEDS: metoprolol tartrate 25 mg Tablet PO ×2 (05:27→20:59)
[2021-02-23] MEDS: dilTIAZem ER (24HR) 180 mg Capsule PO (05:27)
[2021-02-23 06:38] LABS: Glucose Point of Care 114 mg/dL (70-110)
[2021-02-23 08:56] LABS: Basophils % 0.3 %; Eosinophils # 0.3 10^3/uL (0.0-0.8); Eosinophils % 2.5 %; Hematocrit 42.3 % (37.0-47.0); Hemoglobin 13.1 g/dL (11.5-15.3); Lymphocytes # 1.3 10^3/uL (0.8-4.8); Lymphocytes % 12.4 %; Mean Corpuscular Hemoglobin 29.3 pg (28.0-34.0); Mean Corpuscular Volume 94.6 fL (81-99); Mean Platelet Volume 10.7 fL (7.4-10.4); Monocytes # 0.5 10^3/uL (0.2-0.9); Monocytes % 4.5 %; Neutrophils # 8.54 10^3/uL (1.8-7.7); Neutrophils % 79.8 %; Nucleated Red Blood Cells % 0 %; Platelet Count 253 10^3/cmm (130-400); Red Blood Count 4.47 10^6/uL (4.1-5.3); Red Cell Distribution Width 15.1 % (12.1-15.1); White Blood Count 10.7 10^3/uL (4.0-10.0)
[2021-02-23 09:15] LABS: Alanine Aminotransferase 15 U/L (0-33); Albumin Level 3.7 g/dL (3.5-5.2); Alkaline Phosphatase 71 IU/L (35-105); Anion Gap 18.3 (5-19); Aspartate Amino Transferase 13 U/L (0-32); Blood Urea Nitrogen 18 mg/dL (8-23); Calcium 8.8 mg/dL (8.5-10.5); Carbon Dioxide 17 mmol/L (22-29); Chloride 109 mmol/L (98-107); Chol HDL Ratio 3.95 mg/dL (0.0-4.40); Cholesterol 150 mg/dL (0-200); Globulin 2.3 g/dL (1.3-4.6); Glucose 219 mg/dL (65-115); HDL Cholesterol 38 mg/dL (60-100); INR 1.56 (0.8-1.2); LDL Cholesterol Calculated 70 mg/dL (50-129); Magnesium 1.6 mg/dL (1.7-2.3); Osmolality Calculated 299 mOsm/kg (285-295); Phosphorus 2.5 mg/dL (2.5-4.5); Potassium 4.3 mmol/L (3.5-5.1); Sodium 140 mmol/L (136-145); Total Bilirubin 0.5 mg/dL (0.15-1.2); Triglycerides 212 mg/dL (0-150); VLDL Cholestrol Calculation 42 mg/dL (0-30)
[2021-02-23 09:20] LABS: Estmated Average Glucose 128; Hemoglobin A1C 6.1 % (4.0-6.0)
[2021-02-23] MEDS: allopurinol 100 mg Tablet PO (09:28)
[2021-02-23] MEDS: aspirin 81 mg EC Tablet PO (09:28)
--- NOTE | 2021-02-23 12:05 | P.PN_ITS ---
Subjective Subjective: Interval history: Patient slowed down last night she has been switched to p.o. Cardizem and beta-paloma along with rivaroxaban. She is walking around in the hallway. Medications: Reviewed: Yes Vitals/I&O/Wt Last Vital Signs Temp 97.7 F 02/23/21 08:00 Pulse 92 02/23/21 08:00 Resp 20 H 02/23/21 08:00 BP 146/98 02/23/21 08:00 Pulse Ox 95 02/23/21 08:00 02/22/21 02/23/21 02/23/21 22:59 06:59 14:59 Intake Total 180.589 / 180.589 808.25 / 988.839 240 / 240 Balance 180.589 / 180.589 808.25 / 988.839 240 / 240 Weight last 48 hrs Weight 281 lb 4.8 oz Weight 270 lb Physical Exam Narrative: EXAM NARRATIVE: GENERAL: Patient is alert, awake and oriented x3. NECK: No jugular vein distension. HEENT: No cyanosis. No icterus. No pallor. HEART: Irregularly irregular S1 and S2. No murmur, rub or gallop. LUNGS: Clear to auscultate bilaterally. ABDOMEN: Soft, nontender and nondistended. Positive bowel sounds. No guarding, rebound or tenderness. CENTRAL NERVOUS SYSTEM: Grossly nonfocal. EXTREMITIES: Lower extremities without edema bilaterally. Data : 02/23/21 08:07 02/23/21 08:07 Micro: Microbiology 02/22/21 21:22 MRSA Culture - Final Nose 02/22/21 14:57 Blood Culture - Preliminary Blood SPECIMEN COLLECTED 02/22/21 14:55 Blood Culture - Preliminary Blood SPECIMEN COLLECTED A&P Assessment and plan (1) Atrial fibrillation: [id number] score more than 4. Discussed with the patient regarding necessity of anticoagulation, patient agrees to it. We will start patient on oral anticoagulation. I also add beta-paloma to the Cardizem. Further plan will be advised as per progress of the patient. Once slow down will ask for echocardiogram to assess LV function or any valvular abnormality. We will switch patient to p.o. metoprolol and Cardizem along with a nticoagulation as above. We will keep optimize medicine and then heart rate gets under control upon sitting and walking. Hopefully if you do fine may will discharge by tomorrow Status: Acute Qualifiers: Atrial fibrillation type: paroxysmal Qualified Code(s): I48.0 - Paroxysmal atrial fibrillation (2) Mixed hyperlipidemia: Continue statin Status: Acute (3) Hypertension: Well-controlled. 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 Coding Level of Care Code Established Pt Acute Employment Trainer for Nathan Chacko Patient Type Established History Detailed Exam Detailed Medical Decision Making Moderate Complexity Diagnoses Atrial fibrillation I48.0 Atrial fibrillation type: paroxysmal Mixed hyperlipidemia E78.2 Hypertension I10 Hypertension type: essential hypertension Diabetes E11.9 Diabetes mellitus type: type 2 Diabetes mellitus bed bug exterminator insulin use: without fdc use Diabetes mellitus complication status: without complication
[2021-02-23 12:30] LABS: Glucose Point of Care 182 mg/dL (70-110)
[2021-02-23] MEDS: dilTIAZem 60 mg Tablet PO (12:36)
--- NOTE | 2021-02-23 14:52 | PM.PN ---
Subjective Subjective: Interval history: Heart rate a lot better. Patient's Cardizem drip was stopped earlier last night. States she is doing fine. Continues to be on room air. Denies any nausea vomiting, headache. Medications: Reviewed: Yes Vitals/I&O/Wt Last Vital Signs Temp 97.7 F 02/23/21 08:00 Pulse 92 02/23/21 08:00 Resp 20 H 02/23/21 08:00 BP 146/98 02/23/21 08:00 Pulse Ox 95 02/23/21 08:00 02/22/21 02/23/21 02/23/21 22:59 06:59 14:59 Intake Total 180.589 / 180.589 808.25 / 988.839 240 / 240 Balance 180.589 / 180.589 808.25 / 988.839 240 / 240 Weight last 48 hrs Weight 127.596 kg Weight 122.47 kg Physical Exam Narrative: EXAM NARRATIVE: General: No acute distress, AO x3, morbidly obese HEENT: PERRLA, pupils bilaterally equal and reactive Chest: Normal vesicular breath sounds, no added sounds, equal good air entry bilaterally CVS: S1-S2 irregularly irregular, tachycardia present, no gallops, no rubs Abdomen: Soft, nontender, no organomegaly, bowel sounds present Neuro: No focal deficits, no facial deformity, AO x3, power 5/5 in all limbs Data : 02/23/21 08:07 02/23/21 08:07 Micro: Microbiology 02/22/21 21:22 MRSA Culture - Final Nose 02/22/21 14:57 Blood Culture - Preliminary Blood SPECIMEN COLLECTED 02/22/21 14:55 Blood Culture - Preliminary Blood SPECIMEN COLLECTED A&P Assessment and plan (1) Atrial fibrillation: Status: Acute Qualifiers: Atrial fibrillation type: paroxysmal Qualified Code(s): I48.0 - Paroxysmal atrial fibrillation (2) Diabetes: Status: Chronic Qualifiers: Diabetes mellitus type: type 2 Diabetes mellitus longterm insulin use: without correctional facility psychiatrist use Diabetes mellitus complication status: without complication Qualified Code(s): E11.9 - Type 2 diabetes mellitus without complications (3) Hypertension: Status: Chronic Qualifiers: Hypertension type: essential hypertension Qualified Code(s): I10 - Essential (primary) hypertension Additional A&P Information Atrial fibrillation with rapid ventricular response: Appreciate cardiology recommendations. Continues on Cardizem to 40 mg daily, metoprolol 5 twice daily. Rafy vas score 4. Continue with deferoxamine. TSH within normal limits. Echocardiogram pending. Patient most likely has obstructive sleep apnea. Will benefit from outpatient sleep study for CPAP. Ambulate. Will uptitrate metoprolol if needed. Elevated troponin: No active chest pain. Most likely secondary to demand ischemia patient. Continue with aspirin. Lipid panel results appreciated. Hypertension: Goal blood pressure less than 140/90 mmHg. Continue to hold off on lisinopril. Continue to monitor. Continue with Cardizem and metoprolol as above. Type 2 diabetes mellitus: HbA1c 6. Continue with insulin sliding scale at moderate dose. CKD: Baseline around 1.3-1.4. Creatinine at baseline. Continue to monitor. Continue other chronic oral medication including allopurinol. Full code. Full dose Lovenox will help with DVT prophylaxis. Cardiac diet. Attestations Medical Necessity Statement*: Patient requires further hospitalization for management of acute fibrillation with rapid ventricular response. Time Spent in Patient Care: Greater than 35 minutes (>than 50% of time spent in counselling and/or direct pt care on unit). Coding Level of Care Code Acute Strategic Partnership Manager for Jeanineg Fwd Diagnoses Atrial fibrillation I48.0 Atrial fibrillation type: paroxysmal Diabetes E11.9 Diabetes mellitus type: type 2 Diabetes mellitus longterm insulin use: without correctional facility psychiatrist use Diabetes mellitus complication status: without complication Hypertension I10 Hypertension type: essential hypertension
[2021-02-23 16:46] LABS: Glucose Point of Care 100 mg/dL (70-110)
--- NOTE | 2021-02-23 20:00 | PC.NURSE ---
Received report from CRISTAL Lopez. Patient sitting on edge of bed. She is complaining of pain to IV in the right AC. Removed per patient request. Patient has patent IV to left AC currently. Patient up to ambulate in vazquez and tolerating well. Patient c/o bad knees becoming more uncomfortable. She is refusing any medications for this presently. Discussed Cardizem. Patient verbalized understanding.
[2021-02-23 20:08] LABS: Glucose Point of Care 171 mg/dL (70-110)
[2021-02-23] MEDS: rivaroxaban 10 mg Tablet 20 MG PO (20:59)
[2021-02-24] VITALS (11 sets, daily range): BP systolic 115–142; BP diastolic 75–92; PULSE 84–140; RESP 18–29; TEMP 36.4–36.6; O2SAT 94–96
[2021-02-24] MEDS: famotidine 20 mg/2 mL INJ IVP ×2 (05:05→17:50)
--- NOTE | 2021-02-24 05:18 | PC.NURSE ---
Patient up to bathroom this am. Heart rate currently 130s to 170s. Patient denies any symptoms. Patient nervous about going home today stating, If I go home and get around Kt (spouse) I am afraid my heart rate will go up and I will just have to come back here . Prior to this discussion, patient's heart rate was 110s to 120s. Informed Dr Hendrickson and received telephone order for Cardizem 5mg IVP one time now. RBVO
--- NOTE | 2021-02-24 05:49 | PC.NURSE ---
Patient up to chair. Cardizem IVP given as ordered. Patient heart decreasing to 110s at times with occasional jumps to 160. Patient denies any discomforts. No distress observed.
[2021-02-24 06:35] LABS: Glucose Point of Care 141 mg/dL (70-110)
--- NOTE | 2021-02-24 07:42 | PC.NURSE ---
pts hr 150's (afib)..asymptomatic...bp 142/92.dr limon notified.he ordered to dc metoprolol and cardizem...and start sotolol 80 mg po bid.
[2021-02-24] MEDS: aspirin 81 mg EC Tablet PO (08:04)
[2021-02-24] MEDS: sotalol 80 mg Tablet PO ×2 (08:04→20:17)
[2021-02-24] MEDS: allopurinol 100 mg Tablet PO (08:04)
--- NOTE | 2021-02-24 09:58 | P.PN_ITS ---
Subjective Subjective: Interval history: Overnight patient's heart rate went up again with episodes of heart rate going up to 140s. Patient denies any nausea vomiting, headache. On examination sitting comfortably in bed. Currently heart rate running in 110s. Medications: Reviewed: Yes Vitals/I&O/Wt Last Vital Signs Temp 97.9 F 02/24/21 03:33 Pulse 140 H 02/24/21 08:00 Resp 20 H 02/24/21 08:00 BP 142/92 02/24/21 08:00 Pulse Ox 95 02/24/21 08:00 02/23/21 02/24/21 02/24/21 22:59 06:59 14:59 Intake Total 1240 / 1720 240 / 240 Balance 1240 / 1720 240 / 240 Weight last 48 hrs Weight 125.827 kg Weight 127.596 kg Weight 122.47 kg Physical Exam Narrative: EXAM NARRATIVE: General: No acute distress, AO x3, morbidly obese HEENT: PERRLA, pupils bilaterally equal and reactive Chest: Normal vesicular breath sounds, no added sounds, equal good air entry bilaterally CVS: S1-S2 irregularly irregular, tachycardia present, no gallops, no rubs Abdomen: Soft, nontender, no organomegaly, bowel sounds present Neuro: No focal deficits, no facial deformity, AO x3, power 5/5 in all limbs Data : 02/23/21 08:07 02/24/21 10:00 Micro: Microbiology 02/22/21 14:57 Blood Culture - Preliminary Blood NEGATIVE TO DATE 02/22/21 14:55 Blood Culture - Preliminary Blood NEGATIVE TO DATE 02/22/21 21:22 MRSA Culture - Final Nose A&P Assessment and plan (1) Atrial fibrillation: Status: Acute Qualifiers: Atrial fibrillation type: paroxysmal Qualified Code(s): I48.0 - Paroxysmal atrial fibrillation (2) Diabetes: Status: Chronic Qualifiers: Diabetes mellitus complication status: without complication Diabetes mellitus detention insulin use: without rn long term care use Diabetes mellitus type: type 2 Qualified Code(s): E11.9 - Type 2 diabetes mellitus without complications (3) Hypertension: Status: Chronic Qualifiers: Hypertension type: essential hypertension Qualified Code(s): I10 - Essential (primary) hypertension Additional A&P Information Atrial fibrillation with rapid ventricular response: Appreciate cardiology recommendations. Started on sotalol 80 mg twice daily. Continue with Cardizem 180 mg daily. Rafy vas score 4. Continue with Xarelto. TSH within normal limits. Echocardiogram pending. Patient most likely has obstructive sleep apnea. Will benefit from outpatient sleep study for CPAP. Ambulate. Will uptitrate metoprolol if needed. Elevated troponin: No active chest pain. Most likely secondary to demand ischemia patient. Continue with aspirin. Lipid panel results appreciated. Hypertension: Goal blood pressure less than 140/90 mmHg. Continue to hold off on lisinopril. Continue to monitor. Continue with Cardizem and metoprolol as above. Type 2 diabetes mellitus: HbA1c 6. Continue with insulin sliding scale at moderate dose. CKD: Baseline around 1.3-1.4. Creatinine at baseline. Continue to monitor. Continue other chronic oral medication including allopurinol. Full code. Xarelto will help with DVT prophylaxis. Cardiac diet. Attestations Medical Necessity Statement*: Requires further hospitalization for management of atrial fibrillation with rapid ventricular response Time Spent in Patient Care: Greater than 35 minutes (>than 50% of time spent in counselling and/or direct pt care on unit) . Coding Level of Care Code Acute Control Panel Operator for g Fwd Diagnoses Atrial fibrillation I48.0 Atrial fibrillation type: paroxysmal Diabetes E11.9 Diabetes mellitus complication status: without complication Diabetes mellitus detention insulin use: without rn long term care use Diabetes mellitus type: type 2 Hypertension I10 Hypertension type: essential hypertension
[2021-02-24 10:25] LABS: Alanine Aminotransferase 12 U/L (0-33); Albumin Level 3.4 g/dL (3.5-5.2); Alkaline Phosphatase 68 IU/L (35-105); Anion Gap 15.4 (5-19); Aspartate Amino Transferase 9 U/L (0-32); Blood Urea Nitrogen 18 mg/dL (8-23); Calcium 8.8 mg/dL (8.5-10.5); Carbon Dioxide 19 mmol/L (22-29); Chloride 108 mmol/L (98-107); Globulin 2.7 g/dL (1.3-4.6); Glucose 145 mg/dL (65-115); Osmolality Calculated 290 mOsm/kg (285-295); Potassium 4.4 mmol/L (3.5-5.1); Sodium 138 mmol/L (136-145); Total Bilirubin 0.4 mg/dL (0.15-1.2); Total Protein 6.1 g/dL (6.6-8.7)
[2021-02-24 10:58] LABS: Glucose Point of Care 136 mg/dL (70-110)
[2021-02-24] MEDS: dilTIAZem ER (24HR) 180 mg Capsule PO (13:37)
--- NOTE | 2021-02-24 14:35 | P.PN_ITS ---
Subjective Subjective: Interval history: Heart rate is not well controlled patient went into A. fib with rapid ventricle response. We will switch to antiarrhythmic strategy. Medications: Reviewed: Yes Vitals/I&O/Wt Last Vital Signs Temp 97.9 F 02/24/21 03:33 Pulse 110 H 02/24/21 12:00 Resp 29 H 02/24/21 12:00 BP 126/75 02/24/21 12:00 Pulse Ox 94 02/24/21 12:00 02/23/21 02/24/21 02/24/21 22:59 06:59 14:59 Intake Total 1240 / 1720 240 / 240 Balance 1240 / 1720 240 / 240 Weight last 48 hrs Weight 277 lb 6.4 oz Weight 281 lb 4.8 oz Physical Exam Narrative: EXAM NARRATIVE: GENERAL: Patient is alert, awake and oriented x3. NECK: No jugular vein distension. HEENT: No cyanosis. No icterus. No pallor. HEART: Irregularly irregular S1 and S2. No murmur, rub or gallop. LUNGS: Clear to auscultate bilaterally. ABDOMEN: Soft, nontender and nondistended. Positive bowel sounds. No guarding, rebound or tenderness. CENTRAL NERVOUS SYSTEM: Grossly nonfocal. Data : 02/23/21 08:07 02/24/21 10:00 Micro: Microbiology 02/22/21 14:57 Blood Culture - Preliminary Blood NEGATIVE TO DATE 02/22/21 14:55 Blood Culture - Preliminary Blood NEGATIVE TO DATE 02/22/21 21:22 MRSA Culture - Final Nose A&P Assessment and plan (1) Atrial fibrillation: [id number] score more than 4. Discussed with the patient regarding necessity of anticoagulation, patient agrees to it. We will start patient on oral anticoagulation. I also add beta-paloma to the Cardizem. Further plan will be advised as per progress of the patient. Once slow down will ask for echocardiogram to assess LV function or any valvular abnormality. We will switch patient to p.o. metoprolol and Cardizem along with anticoagulation as above. We will keep optimize medicine and then heart rate gets under control upon sitting and walking. Hopefully if you do fine may will discharge by tomorrow We will stop metoprolol will switch patient to sotalol 80 twice daily will ask for EKG 3 hours after each dose to assess QT QTC. We will switch to p.o. 180 mgCardizem Status: Acute Qualifiers: Atrial fibrillation type: paroxysmal Qualified Code(s): I48.0 - Paroxysmal atrial fibrillation (2) Mixed hyperlipidemia: Continue statin Status: Acute (3) Hypertension: Well-controlled. Continue current regimen Status: Chronic Qualifiers: Hypertension type: essential hypertension Qualified Code(s): I10 - Essential (primary) hypertension (4) Diabetes: As per medicine Status: Chronic Qualifiers: Diabetes mellitus type: type 2 Diabetes mellitus fpc insulin use: without supervisor intermediates use Diabetes mellitus complication status: without complication Qualified Code(s): E11.9 - Type 2 diabetes mellitus without complications Attestations Medical Necessity Statement*: Patient require continuation hospitalization for above defined care. 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
[2021-02-24 16:54] LABS: Glucose Point of Care 109 mg/dL (70-110)
--- NOTE | 2021-02-24 19:12 | PC.NURSE ---
Dr. Soto gave telephone order to get EKG 3 hours after each Sotalol dose.
[2021-02-24] MEDS: rivaroxaban 10 mg Tablet 20 MG PO (20:17)
[2021-02-24 20:21] LABS: Glucose Point of Care 178 mg/dL (70-110)
[2021-02-25] VITALS (11 sets, daily range): BP systolic 112–139; BP diastolic 72–85; PULSE 83–110; RESP 12–24; TEMP 36.4–36.7; O2SAT 94–97
--- NOTE | 2021-02-25 | ECG_ITS ---
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: : 1945 Requested By: Amanda Soto Order Number: [id number] Reading MD: AMANDA SOTO Measurements Intervals [place] Rate: 94 P: [place]: QRS: -9 QRSD: 88 T: 43 QT: 369 QTc: 462 Interpretive Statements ATRIAL FIBRILLATION LOW QRS VOLTAGE IN PRECORDIAL LEADS [QRS DEFLECTION < 1.0 mV IN CHEST LEADS] NONSPECIFIC ST & T-WAVE ABNORMALITY ABNORMAL RHYTHM ECG Compared to ECG 02/22/2021 18:24:25 Left ventricular hypertrophy no longer present Myocardial infarct finding no longer present Possible ischemia no longer present T-wave abnormality still present Electronically Signed On 02-25-2021 18:53:10 CDT by AMANDA SOOT [id number]
[2021-02-25] MEDS: famotidine 20 mg/2 mL INJ IVP ×2 (04:22→18:01)
[2021-02-25 04:39] LABS: Alanine Aminotransferase 14 U/L (0-33); Albumin Level 3.3 g/dL (3.5-5.2); Alkaline Phosphatase 68 IU/L (35-105); Anion Gap 14.2 (5-19); Aspartate Amino Transferase 9 U/L (0-32); Blood Urea Nitrogen 22 mg/dL (8-23); Carbon Dioxide 19 mmol/L (22-29); Chloride 111 mmol/L (98-107); Globulin 2.6 g/dL (1.3-4.6); Glucose 116 mg/dL (65-115); Osmolality Calculated 294 mOsm/kg (285-295); Potassium 4.2 mmol/L (3.5-5.1); Sodium 140 mmol/L (136-145); Total Bilirubin 0.5 mg/dL (0.15-1.2); Total Protein 5.9 g/dL (6.6-8.7)
[2021-02-25 06:41] LABS: Glucose Point of Care 116 mg/dL (70-110)
[2021-02-25] MEDS: aspirin 81 mg EC Tablet PO (08:52)
[2021-02-25] MEDS: dilTIAZem ER (24HR) 180 mg Capsule PO (08:52)
[2021-02-25] MEDS: sotalol 80 mg Tablet PO ×2 (08:53→20:49)
[2021-02-25] MEDS: allopurinol 100 mg Tablet PO (08:54)
--- NOTE | 2021-02-25 10:39 | PC.SOCIAL ---
IMM update Imm given to patient and discussed . Pt verbalized understanding. Copy placed in chart: initialed dated signed.
[2021-02-25 11:04] LABS: Glucose Point of Care 126 mg/dL (70-110)
--- NOTE | 2021-02-25 12:00 | ECG_ITS ---
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: : 1945 Requested By: Amanda Soto Order Number: [id number] Reading MD: AMANDA SOTO Measurements Intervals [place] Rate: 80 P: MT: QRS: -5 QRSD: 98 T: 29 QT: 410 QTc: 474 Interpretive Statements ATRIAL FIBRILLATION LOW QRS VOLTAGE IN PRECORDIAL LEADS [QRS DEFLECTION < 1.0 mV IN CHEST LEADS] MINIMAL ST DEPRESSION [0.025+ mV ST DEPRESSION] ABNORMAL RHYTHM ECG Compared to ECG 02/24/2021 23:12:43 ST (T wave) deviation now present T-wave abnormality no longer present Electronically Signed On 02-25-2021 18:52:28 CDT by AMANDA SOTO [email or web address] [email or web address].[email or web address]/[id number]
--- NOTE | 2021-02-25 12:24 | P.PN_ITS ---
Subjective Subjective: Interval history: Patient was seen and examined this morning. Heart rate still in 110-120s with ambulation. She denies any shortness of breath , chest pain, cough, nausea, vomiting. Medications: Reviewed: Yes Vitals/I&O/Wt Last Vital Signs Temp 98 F 02/25/21 08:00 Pulse 110 H 02/25/21 08:00 Resp 20 H 02/25/21 08:00 BP 124/80 02/25/21 08:00 Pulse Ox 95 02/25/21 08:00 02/24/21 02/25/21 02/25/21 22:59 06:59 14:59 Intake Total 290 / 530 50 / 580 340 / 340 Balance 290 / 530 50 / 580 340 / 340 Weight last 48 hrs Weight 125.872 kg Weight 125.827 kg Physical Exam Const: COMMON NORMALS: patient oriented x3 HENMT: COMMON NORMALS: normocephalic and atraumatic HEAD & SCALP: normoceph alic and atraumatic Resp: COMMON NORMALS: clear to auscultation bilaterally EFFORT & INSPECTION: Yes symmetric chest movement AUSCULTATION: clear to auscultation bilaterally Cardio: COMMON NORMALS: regular rate, regular rhythm, S1 normal heart sound present, S2 normal heart sound present, No gallops present (Cardio), No murmurs present (Cardio), No rub (Cardio) and Peripheral pulses 2+ throughout RATE: regular rate RHYTHM: regular rhythm HEART SOUNDS: S1 normal heart sound present and S2 normal heart sound present PERIPHERAL PULSES: Peripheral pulses 2+ throughout GI: COMMON NORMALS: Normal to inspection, nondistended, normoactive bowel sounds present, Soft to palpation, non-tender, No hepatosplenomegaly present and no masses AUSCULTATION: Yes normoactive bowel sounds PALPATION: Yes Soft to palpation and Yes No hepatosplenomegaly present RECTAL EXAM: deferred Extremity: COMMON NORMALS: no clubbing, cyanosis or edema and no pedal edema Neuro: COMMON NORMALS: patient oriented x3 Data : 02/23/21 08:07 02/25/21 03:28 A&P Assessment and plan (1) Atrial fibrillation: Status: Acute Qualifiers: Atrial fibrillation type: paroxysmal Qualified Code(s): I48.0 - Paroxysmal atrial fibrillation (2) Diabetes: Status: Chronic Qualifiers: Diabetes mellitus type: type 2 Diabetes 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 Normal left ventricular systolic function. No regional wall motion abnormalities. Left ventricular ejection fraction is estimated at 60 %. The right ventricle is normal in size and function. Moderately thickened mitral valve. No mitral valve stenosis. Moderate mitral valve regurgitation.Pulmonary artery systolic pressure is within normal limits. She was Started on sotalol 80 mg twice daily on 02/24 as her H/R was still uncontrolled. Hence it was decided to add an antiarrhythmic agent, in an attempt to convert her. She was continued on Cardizem 180 mg daily. Rafy vas score 4. Continue with Xarelto. Patient most likely has obstructive sleep apnea. Will benefit from outpatient sleep study for CPAP. Ambulate. Elevated troponin: No active chest pain. Most likely secondary to demand ischemia patient. Continue with aspirin. Lipid panel results appreciated. Hypertension: Goal blood pressure less than 140/90 mmHg. Continue to hold off on lisinopril. Continue to monitor. Continue with Cardizem Type 2 diabetes mellitus: HbA1c 6. Continue with insulin sliding scale at moderate dose. CKD: Baseline around 1.3-1.4. Creatinine at baseline. Continue to monitor. Continue other chronic oral medication including allopurinol. Full code. Xarelto will help with DVT prophylaxis. Cardiac diet. Attestations Medical Necessity Statement*: Patient needs to be in hospital for management of A. fib with RVR. Coding Level of Care Code Acute Film Drying Machine Operator for g Fwd Diagnoses Atrial fibrillation I48.0 Atrial fibrillation type: paroxysmal Diabetes E11.9 Diabetes mellitus type: type 2 Diabetes mellitus retirement insulin use: without retirement use Diabetes mellitus complication status: without complication Hypertension I10 Hypertension type: essential hypertension
[2021-02-25] MEDS: dilTIAZem ER (12HR) 60 mg Capsule PO (14:12)
--- NOTE | 2021-02-25 16:33 | P.PN_ITS ---
Subjective Subjective: Interval history: Patient was started on sotalol yesterday. QT QTC is within normal limits of 470. Heart rate in between 90-110 still in A. fib. I will increase Cardizem to 240 mg we will give 60 mg extra today. Medications: Reviewed: Yes Vitals/I&O/Wt Last Vital Signs Temp 97.8 F 02/25/21 16:02 Pulse 87 02/25/21 16:02 Resp 17 02/25/21 16:02 BP 117/85 02/25/21 16:02 Pulse Ox 94 02/25/21 16:02 02/25/21 02/25/21 02/25/21 06:59 14:59 22:59 Intake Total 50 / 580 400 / 400 Balance 50 / 580 400 / 400 Weight last 48 hrs Weight 277 lb 8 oz Weight 277 lb 6.4 oz Physical Exam Narrative: EXAM NARRATIVE: GENERAL: Patient is alert, awake and oriented x3. NECK: No jugular vein distension. HEENT: No cyanosis. No icterus. No pallor. HEART: Irregularly irregular S1 and S2. No murmur, rub or gallop. LUNGS: Clear to auscultate bilaterally. ABDOMEN: Soft, nontender and nondistended. Positive bowel sounds. No guarding, rebound or tenderness. CENTRAL NERVOUS SYSTEM: Grossly nonfocal. Data : 02/23/21 08:07 02/25/21 03:28 A&P Assessment and plan (1) Atrial fibrillation: [id number] score more than 4. Discussed with the patient regarding necessity of anticoagulation, patient agrees to it. We will start patient on oral anticoagulation. I also add beta-paloma to the Cardizem. Further plan will be advised as per progress of the patient. Once slow down will ask for echocardiogram to assess LV function or any valvular abnormality. We will switch patient to p.o. metoprolol and Cardizem along with anticoagulation as above. We will keep optimize medicine and then heart rate gets under control upon sitting and walking. Hopefully if you do fine may will discharge by tomorrow We will stop metoprolol will switch patient to sotalol 80 twice daily will ask for EKG 3 hours after each dose to assess QT QTC. We will switch to p.o. 180 mgCardizem. On today's visit I will continue Cardizem to 240 mg, we will stay sotalol at 80 mg twice a day continue to monitor QT QTC. Status: Acute Qualifiers: Atrial fibrillation type: paroxysmal Qualified Code(s): I48.0 - Paroxysmal atrial fibrillation (2) Mixed hyperlipidemia: Continue statin Status: Acute (3) Hypertension: Well-controlled. Continue current regimen Status: Chronic Qualifiers: Hypertension type: essential hypertension Qualified Code(s): I10 - Essential (primary) hypertension (4) Diabetes: As per medicine Status: Chronic Qualifiers: Diabetes mellitus type: type 2 Diabetes mellitus retirement insulin use: without retirement use Diabetes mellitus complication status: without complication Qualified Code(s): E11.9 - Type 2 diabetes mellitus without complications Attestations Medical Necessity Statement*: will continue to stay in the hospital for about defined care for Coding Level of Care Code Established Pt Acute Quantitative Software Engineer for g Orestesd Patient Type Established History Detailed Exam Detailed Medical Decision Making Moderate Complexity Diagnoses Atrial fibrillation I48.0 Atrial fibrillation type: paroxysmal Mixed hyperlipidemia E78.2 Hypertension I10 Hypertension type: essential hypertension Diabetes E11.9 Diabetes mellitus type: type 2 Diabetes mellitus retirement insulin use: without retirement use Diabetes mellitus complication status: without complication
[2021-02-25 16:41] LABS: Glucose Point of Care 101 mg/dL (70-110)
--- NOTE | 2021-02-25 20:01 | PC.NURSE ---
Bedside report received from Jessica BEE. Patient is resting in bed w/eyes closed. No C/O of pain at this time. Assisted patient up to bedside commode.
[2021-02-25 20:16] LABS: Glucose Point of Care 148 mg/dL (70-110)
[2021-02-25] MEDS: rivaroxaban 10 mg Tablet 20 MG PO (20:49)
[2021-02-26] VITALS (9 sets, daily range): BP systolic 109–165; BP diastolic 72–97; PULSE 62–97; RESP 15–24; TEMP 36.3–36.6; O2SAT 94–98
--- NOTE | 2021-02-26 | ECG_ITS ---
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1945 Requested By: Amanda Soto Order Number: [id number] Reading MD: AMANDA SOTO Measurements Intervals [place] Rate: 84 P: CT: QRS: -10 QRSD: 92 T: 63 QT: 378 QTc: 448 Interpretive Statements ATRIAL FIBRILLATION LOW QRS VOLTAGE IN PRECORDIAL LEADS [QRS DEFLECTION < 1.0 mV IN CHEST LEADS] ANTEROSEPTAL MYOCARDIAL INFARCTION [40+ ms Q WAVE IN V1-V4], PROBABLY OLD Compared to ECG 02/25/2021 11:47:29 Myocardial infarct finding now present ST (T wave) deviation no longer present Electronically Signed On 02-26-2021 20:14:00 CDT by AMANDA SOTO [id number]
--- NOTE | 2021-02-26 00:52 | PC.NURSE ---
OTc - 448 after 2100 Sotalol dose. Previous OTc 474
[2021-02-26] MEDS: famotidine 20 mg/2 mL INJ IVP ×2 (05:52→18:39)
[2021-02-26 06:54] LABS: Glucose Point of Care 118 mg/dL (70-110)
[2021-02-26] MEDS: dilTIAZem ER (24HR) 240 mg Capsule PO (09:01)
[2021-02-26] MEDS: sotalol 80 mg Tablet PO ×2 (09:01→20:57)
[2021-02-26] MEDS: aspirin 81 mg EC Tablet PO (09:01)
[2021-02-26] MEDS: allopurinol 100 mg Tablet PO (09:01)
[2021-02-26 10:32] LABS: Glucose Point of Care 131 mg/dL (70-110)
[2021-02-26] MEDS: sotalol 80 mg Tablet 40 MG PO (13:32)
--- NOTE | 2021-02-26 16:27 | P.PN_ITS ---
Subjective Subjective: Interval history: Patient was seen and examined this morning, continues to be in A. fib, with rates ranging from 100 -110. Sotalol dose has been increased to 120 mg p.o. daily in the morning and 80 mg p.o. in the evening. Received additional 40 mg p.o. sotalol x1 dose in addition to 80 mg p.o. in the morning. To complete the total dose of 120 mg p.o. in the morning, and will receive additional 80 mg p.o. bedtime dose. Medications: Reviewed: Yes Vitals/I&O/Wt Last Vital Signs Temp 97.9 F 02/26/21 16:00 Pulse 74 02/26/21 16:00 Resp 20 H 02/26/21 16:00 BP 120/76 02/26/21 16:00 Pulse Ox 94 02/26/21 16:00 02/26/21 02/26/21 02/26/21 06:59 14:59 22:59 Intake Total 300 / 300 Output Total 400 / 400 Balance -400 / 200 300 / 300 Weight last 48 hrs Weight 126.28 kg Weight 125.872 kg Physical Exam Const: COMMON NORMALS: patient oriented x3 HENMT: COMMON NORMALS: normocephalic and atraumatic HEAD & SCALP: normocephalic and atraumatic Resp: COMMON NORMALS: clear to auscultation bilaterally EFFORT & INS PECTION: Yes symmetric chest movement AUSCULTATION: clear to auscultation bilaterally Cardio: COMMON NORMALS: regular rate, regular rhythm, S1 normal heart sound present, S2 normal heart sound present, No gallops present (Cardio), No murmurs present (Cardio), No rub (Cardio) and Peripheral pulses 2+ throughout RATE: regular rate RHYTHM: regular rhythm HEART SOUNDS: S1 normal heart sound present and S2 normal heart sound present PERIPHERAL PULSES: Peripheral pulses 2+ throughout GI: COMMON NORMALS: Normal to inspection, nondistended, normoactive bowel sounds present, Soft to palpation, non-tender, No hepatosplenomegaly present and no masses AUSCULTATION: Yes normoactive bowel sounds PALPATION: Yes Soft to palpation and Yes No hepatosplenomegaly present RECTAL EXAM: deferred Extremity: COMMON NORMALS: no clubbing, cyanosis or edema and no pedal edema Neuro: COMMON NORMALS: patient oriented x3 Data : 02/23/21 08:07 02/25/21 03:28 A&P Assessment and plan (1) Atrial fibrillation: Status: Acute Qualifiers: Atrial fibrillation type: paroxysmal Qualified Code(s): I48.0 - Paroxysmal atrial fibrillation (2) Diabetes: Status: Chronic Qualifiers: Diabetes mellitus type: type 2 Diabetes mellitus fci insulin use: without fci use Diabetes mellitus complication status: without complication Qualified Code(s): E11.9 - Type 2 diabetes mellitus without complications (3) Hypertension: Status: Chronic Qualifiers: Hypertension type: essential hypertension Qualified Code(s): I10 - Essential (primary) hypertension Additional A&P Information Atrial fibrillation with rapid ventricular response: TSH : normal 2D Echo: Normal left ventricular cavity size. Normal left ventricular systolic function. No regional wall motion abnormalities. Left ventricular ejection fraction is estimated at 60 %. The right ventricle is normal in size and function. Moderately thickened mitral valve. No mitral valve stenosis. Moderate mitral valve regurgitation.Pulmonary artery systolic pressure is within normal limits. Rafy vas score 4. Sotalol 120 mg p.o. daily in the morning and 80 mg p.o. in the evening. Cardizem 180 mg daily. Xarelto 20 mg p.o. daily Patient most likely has obstructive sleep apnea. Will benefit from outpatient sleep study for CPAP. Ambulate. Elevated troponin: No active chest pain. Most likely secondary to demand ischemia patient. Continue with aspirin. Lipid panel results appreciated. Hypertension: Goal blood pressure less than 140/90 mmHg. Continue to hold off on lisinopril. Continue to monitor. Continue with Cardizem Type 2 diabetes mellitus: HbA1c 6. Continue with insulin sliding scale at moderate dose. CKD: Baseline around 1.3-1.4. Creatinine at baseline. Continue to monitor. Continue other chronic oral medication including allopurinol. Full code. Xarelto will help with DVT prophylaxis. Cardiac diet. Attestations Medical Necessity Statement*: Patient needs to be in the hospital for management of A.fib with RVR Coding Level of Care Code Acute Industrial Engineering Analyst for Chg Fwd Diagnoses Atrial fibrillation I48.0 Atrial fibrillation type: paroxysmal Diabetes E11.9 Diabetes mellitus type: type 2 Diabetes mellitus dental surgery doctor insulin use: without dental surgery doctor use Diabetes mellitus complication status: without complication Hypertension I10 Hypertension type: essential hypertension
--- NOTE | 2021-02-26 17:04 | PC.NURSE ---
DR limon rounding on patient verbal instructions received to place orders for CONSUELO with cardioversion increase sotalol to 120mg in the am and 80mg in the PM with a 1 time order for 40 mg po now
[2021-02-26 17:08] LABS: Glucose Point of Care 128 mg/dL (70-110)
--- NOTE | 2021-02-26 19:55 | P.PN_ITS ---
Subjective Subjective: Interval history: Heart rate continues to better but still not in sinus rhythm or not under full control. QT QTC is within normal limit. I will increase sotalol to 120 mg in the morning we will keep 80 mg in the night. Medications: Reviewed: Yes Vitals/I&O/Wt Last Vital Signs Temp 97.9 F 02/26/21 19:31 Pulse 63 02/26/21 19:31 Resp 24 H 02/26/21 19:31 BP 133/81 02/26/21 19:31 Pulse Ox 97 02/26/21 19:31 02/26/21 02/26/21 02/26/21 06:59 14:59 22:59 Intake Total 300 / 300 240 / 540 Output Total 400 / 400 Balance -400 / 200 300 / 300 240 / 540 Weight last 48 hrs Weight 278 lb 6.4 oz Weight 277 lb 8 oz Physical Exam Narrative: EXAM NARRATIVE: GENERAL: Patient is alert, awake and oriented x3. NECK: No jugular vein distension. HEENT: No cyanosis. No icterus. No pallor. HEART: Irregularly irregular S1 and S2. No murmur, rub or gallop. LUNGS: Clear to auscultate bilaterally. ABDOMEN: Soft, nontender and nondistended. Positive bowel sounds. No guarding, rebound or tenderness. CENTRAL NERVOUS SYSTEM: Grossly nonfocal. Data : 02/23/21 08:07 02/25/21 03:28 A&P Assessment and plan (1) Atrial fibrillation: [id number] score more than 4. Discussed with the patient regarding necessity of anticoagulation, patient agrees to it. We will start patient on oral anticoagulation. I also add beta-paloma to the Cardizem. Further plan will be advised as per progress of the patient. Once slow down will ask for echocardiogram to assess LV function or any valvular abnormality. We will switch patient to p.o. metoprolol and Cardizem along with an ticoagulation as above. We will keep optimize medicine and then heart rate gets under control upon sitting and walking. Hopefully if you do fine may will discharge by tomorrow We will stop metoprolol will switch patient to sotalol 80 twice daily will ask for EKG 3 hours after each dose to assess QT QTC. We will switch to p.o. 180 mgCardizem. On today's visit I will continue Cardizem to 240 mg, we will stay sotalol at 80 mg twice a day continue to monitor QT QTC. Since heart rate still not under fully control I will increase sotalol to 120 mg the morning and will keep 80 mg in the night. Continue rivaroxaban. If patient does not convert by tomorrow we may will proceed with CONSUELO guided cardioversion already scheduled for 3:30 PM tomorrow. I have detailed discussion with the patient regarding all risk benefit and alternative for the procedure including CONSUELO and electrical cardioversion. She understood it and would like to proceed with it Status: Acute Qualifiers: Atrial fibrillation type: paroxysmal Qualified Code(s): I48.0 - Paroxysmal atrial fibrillation (2) Mixed hyperlipidemia: Continue statin Status: Acute (3) Hypertension: Well-controlled. Continue current regimen Status: Chronic Qualifiers: Hypertension type: essential hypertension Qualified Code(s): I10 - Essential (primary) hypertension (4) Diabetes: As per medicine Status: Chronic Qualifiers: Diabetes mellitus type: type 2 Diabetes mellitus fdc insulin use: without fdc use Diabetes mellitus complication status: without c omplication Qualified Code(s): E11.9 - Type 2 diabetes mellitus without co mplications Attestations Medical Necessity Statement*: Patient require continuation hospitalization for above defined care. Coding Level of Care Code Established Pt Acute Adaptive Physical Educator for Nathan Chacko Patient Type Established History Detailed Exam Detailed Medical Decision Making Moderate Complexity Diagnoses Atrial fibrillation I48.0 Atrial fibrillation type: paroxysmal Mixed hyperlipidemia E78.2 Hypertension I10 Hypertension type: essential hypertension Diabetes E11.9 Diabetes mellitus type: type 2 Diabetes mellitus fdc insulin use: without marine oil terminal superintendent use Diabetes mellitus complication status: without complication
[2021-02-26] MEDS: rivaroxaban 10 mg Tablet 20 MG PO (20:57)
[2021-02-26 23:54] LABS: Glucose Point of Care 181 mg/dL (70-110)
--- NOTE | 2021-02-27 00:18 | ECG_ITS ---
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 Measurements Intervals [place] Rate: 61 P: 82 MO: 230 QRS: -6 QRSD: 93 T: 10 QT: 460 QTc: 466 Interpretive Statements SINUS RHYTHM WITH FIRST DEGREE AV BLOCK LOW QRS VOLTAGE IN PRECORDIAL LEADS [QRS DEFLECTION < 1.0 mV IN CHEST LEADS] SEPTAL MYOCARDIAL INFARCTION [40+ ms Q WAVE IN V1/V2], OF INDETERMINATE AGE Compared to ECG 02/26/2021 00:47:02 First degree AV block now present Atrial fibrillation no longer present Myocardial infarct finding still present Electronically Signed On 02-27-2021 22:57:23 CDT by Tucker Wadsworth M.D. [id number]
[2021-02-27 04:00] VITALS: BP 120/63; PULSE 59; RESP 17; TEMP 36.6; O2SAT 96
[2021-02-27 04:09] LABS: Basophils % 0.4 %; Eosinophils # 0.3 10^3/uL (0.0-0.8); Eosinophils % 4.1 %; Hematocrit 39.3 % (37.0-47.0); Hemoglobin 11.7 g/dL (11.5-15.3); Lymphocytes # 1.8 10^3/uL (0.8-4.8); Lymphocytes % 23.5 %; Mean Corpuscular HGB Conc 29.8 g/dL (30.0-36.0); Mean Corpuscular Hemoglobin 28.8 pg (28.0-34.0); Mean Corpuscular Volume 96.8 fL (81-99); Mean Platelet Volume 10.9 fL (7.4-10.4); Monocytes # 0.6 10^3/uL (0.2-0.9); Monocytes % 7.9 %; Neutrophils # 4.84 10^3/uL (1.8-7.7); Neutrophils % 63.7 %; Nucleated Red Blood Cells % 0 %; Platelet Count 233 10^3/cmm (130-400); Red Blood Count 4.06 10^6/uL (4.1-5.3); Red Cell Distribution Width 15.2 % (12.1-15.1); White Blood Count 7.6 10^3/uL (4.0-10.0)
[2021-02-27 04:27] LABS: Anion Gap 12.5 (5-19); Blood Urea Nitrogen 27 mg/dL (8-23); Calcium 8.9 mg/dL (8.5-10.5); Carbon Dioxide 21 mmol/L (22-29); Chloride 109 mmol/L (98-107); Glucose 103 mg/dL (65-115); Osmolality Calculated 291 mOsm/kg (285-295); Potassium 4.5 mmol/L (3.5-5.1); Sodium 138 mmol/L (136-145)
[2021-02-27 05:33] VITALS: PULSE 56
[2021-02-27] MEDS: famotidine 20 mg/2 mL INJ IVP (06:00)
[2021-02-27 06:50] LABS: Glucose Point of Care 132 mg/dL (70-110)
[2021-02-27 07:37] VITALS: BP 137/77; PULSE 62; RESP 17; TEMP 36.4; O2SAT 98
--- NOTE | 2021-02-27 08:04 | P.DS_ITS ---
Discharge Providers Date of Admission: 02/22/21 15:04 Date of Discharge: February 27, 2021 Attending Provider at Admission: Pete Stewart MD Attending Provider at Discharge: Ap Cao MD Primary Care Provider: BORA Bautista Diagnoses at Discharge Discharge Diagnosis (1) Atrial fibrillation: Status: Acute Permanent problem details: Converted to normal sinus rhythm on sotolol Qualifiers: Atrial fibrillation type: paroxysmal Qualified Code(s): I48.0 - Paroxysmal atrial fibrillation (2) Mixed hyperlipidemia: Status: Acute (3) Hypertension: Status: Chronic Qualifiers: Hypertension type: essential hypertension Qualified Code(s): I10 - Essential (primary) hypertension (4) Diabetes: Status: Chronic Qualifiers: Diabetes mellitus complication status: without complication Diabetes mellitus intermediate insulin use: without intermediate use Diabetes mellitus type: type 2 Qualified Code(s): E11.9 - Type 2 diabetes mellitus without complications [facility] Hospital Course 75 year old female with past medical history of hypertension, type 2 diabetes mellitus, hyperlipidemia, KEANU not on CPAP since 2018 posterior lap band surgery presents to the ER after being referred from her primary care's office. Patient states that she had went to her primary care office to get blood work and found to have a fast irregular heartbeat so sent to the ER. Patient denied any chest pain, difficulty breathing, nausea vomiting, dizziness, headache. She was worked up for above-mentioned complaint in the ER EKG showed A. fib with RVR, she was admitted for the management of A. fib with RVR. During the hospital stay she was on miguel blocking agent (Cardizem drip metoprolol), heart rate was pretty uncontrolled, sotalol was started with EKG 3 hours after each dose to monitor for corrected QTC, and an attempt to convert her to normal sinus rhythm. She converted to normal sinus rhythm with a well-controlled rate in 60s at the time of discharge, corrected QTC was within the normal limits. She was discharged on sotalol 80 mg p.o. twice daily, as well as Cardizem to 240 mg CD daily, along with Xarelto 20 mg p.o. daily (Rafy vas score 4 ). Lisinopril home dose was decreased to 10 mg p.o. daily as compared to 20 mg p.o. daily, as her blood pressure was slightly soft. 2D echo done during this hospital stay: Normal left ventricular cavity size. Normal left ventricular systolic function. No regional wall motion abnormalities. Left ventricular ejection fraction is estimated at 60 %. The right ventricle is normal in size and function. Moderately thickened mitral valve. No mitral valve stenosis. Moderate mitral valve regurgitation.Pulmonary artery systolic pressure is within normal limits. Patient responded well to the above medical management and is being discharged in stable condition to home she will follow as an outpatient. Physical Exam Const: COMMON NORMALS: patient oriented x3 HENMT: COMMON NORMALS: normocephalic and atraumatic HEAD & SCALP: normocephalic and atraumatic Resp: COMMON NORMALS: clear to auscultation bilaterally EFFORT & INSPECTION: Yes symmetric chest movement AUSCULTATION: clear to auscultation bilaterally Cardio: COMMON NORMALS: regular rate, regular rhythm, S1 normal heart sound present, S2 normal heart sound present, No gallops present (Cardio), No murmurs present (Cardio), No rub (Cardio) and Peripheral pulses 2+ throughout RATE: regular rate RHYTHM: regular rhythm HEART SOUNDS: S1 normal heart sound present and S2 normal heart sound present PERIPHERAL PULSES: Peripheral pulses 2+ throughout GI: COMMON NORMALS: Normal to inspection, nondistended, normoactive bowel sounds present, Soft to palpation, non-tender, No hepatosplenomegaly present and no masses AUSCULTATION: Yes normoactive bowel sounds PALPATION: Yes Soft to palpation and Yes No hepatosplenomegaly present RECTAL EXAM: deferred Extremity: COMMON NORMALS: no clubbing, cyanosis or edema and no pedal edema Neuro: COMMON NORMALS: patient oriented x3 Discharge Data Data Completed and Pending: Completed Studies During Hospitalization Category Date Time Status XR chest 1V nas ble [id number] Stat Exams 02/22/21 12:27 Completed CV. echo complete * [id number] Routine Ultrasound 02/23/21 05:00 Completed Pending at discharge Category Date Time Status Blood Culture Sta t Lab 02/22/21 14:57 Results CONSUELO [CV. echo tra nsesophageal [id number] ] Routine Ultrasound 02/27/21 14:00 Ordered Labs from last 24 hours 02/27/21 02/27/21 02/27/21 06:34 03:15 03:15 WBC 7.6 RBC 4.06 L Hgb 11.7 Hct 39.3 MCV 96.8 MCH 28.8 MCHC 29.8 L RDW 15.2 H Plt Count 233 MPV 10.9 H Neut % (Auto) 63.7 Lymph % (Auto) 23.5 [place] % (Auto) 7.9 Eos % (Auto) 4.1 Baso % (Auto) 0.4 Neut # (Auto) 4.84 Lymph # (Auto) 1.8 [place] # (Auto) 0.6 Eos # (Auto) 0.3 Baso # (Auto) 0.0 Nucleated RBC % (a uto) 0 Nucleated RBCs # 0.0 Sodium 138 Potassium 4.5 Chloride 109 H Carbon Dioxide 21 L Anion Gap 12.5 BUN 27 H Creatinine 1.3 H GFR Calculation Not Reportable Glucose 103 POC Glucose 132 H Calculated Osmolal ity 291 Calcium 8.9 Magnesium 2.0 02/26/21 02/26/21 02/26/21 19:34 16:55 10:22 WBC RBC Hgb Hct MCV MCH MCHC RDW Plt Count MPV Neut % (Auto) Lymph % (Auto) [place] % (Auto) Eos % (Auto) Baso % (Auto) Neut # (Auto) Lymph # (Auto) [place] # (Auto) Eos # (Auto) Baso # (Auto) Nucleated RBC % (a uto) Nucleated RBCs # Sodium Potassium Chloride Carbon Dioxide Anion Gap BUN Creatinine GFR Calculation Glucose POC Glucose 181 H 128 H 131 H Calculated Osmolal ity Calcium Magnesium Vitals: Last Vital Signs Temp 97.5 F L 02/27/21 07:37 Pulse 62 02/27/21 07:37 Resp 17 02/27/21 07:37 BP 137/77 02/27/21 07:37 Pulse Ox 98 02/27/21 07:37 Discharge Plan Discharge Patient Disposition: Home Condition: Stable Prescriptions: New diltiazem HCl 240 mg Capsule,Extended Release 24hr 240 mg PO DAILY 30 Days Qty: 30 RF: 3 Xarelto 10 mg Tablet 20 mg PO Q24H Qty: 30 RF: 3 sotalol 80 mg Tablet 80 mg PO BID@0900,2100 30 Days Qty: 60 RF: 3 Continued hydroxyzine HCl 25 mg tablet 25 mg PO BID PRN (Reason: itching) Qty: 60 RF: 2 allopurinol 100 mg tablet 100 mg PO DAILY RF: 0 aspirin 81 mg tablet,delayed release (DR/EC) 81 mg PO DAILY RF: 0 glimepiride 2 mg tablet 2 mg PO DAILY RF: 0 Changed lisinopril 20 mg tablet 10 mg PO DAILY Qty: 0 RF: 0 Discharge Orders: Discharge Order (Routine); Ordered 02/27/21 Ordered By: Ap Cao Referrals: SUNDAR Munguia FNP [Primary Care Provider] - 2 weeks (You have a follow up with BORA Howell on March 11 at 10:00 am If you are not able to keep this appointment please call to [facility] ) Amanda Limon MD [Physician] - 1 month (You have a follow up with Dr limon on March 28 at 2:00 pm If you are not able to keep this appointment please call heart care services to [facility] ) Discharge Diet: Diabetic Discharge Activity: Resume usual activity Patient Instructions: Atrial Fibrillation, Diltiazem (By mouth), Sotalol (By mouth), Rivaroxaban (By mouth), Chest Pain Stoplight, Opioid Safety Discharge Attestations Time Spent in Discharge Care*: less than 30 min Specific Discharge Activities: educating patient, educating and/or supporting family/caregiver, discussing with pcp/other providers, discussing with case finishing machine adjuster/social workers/dc planners, documenting/other paperwork and evaluating patient/reviewing data Status at Discharge: Cognitive status at discharge: cognitively intact , Behavioral status at discharge: cooperative , Functional status at discharge: independent ambulation Overall status at discharge: patient is back to baseline Quality Metrics Clinical Quality Measures During this hospital stay, did patient experience: None Coding Level of Care Code Acute [facility] DC note Exam Detailed Diagnoses Atrial fibrillation I48.0 Atrial fibrillation type: paroxysmal Mixed hyperlipidemia E78.2 Hypertension I10 Hypertension type: essential hypertension Diabetes E11.9 Diabetes mellitus complication status: without complication Diabetes mellitus predatory animal exterminator insulin use: without predatory animal exterminator use Diabetes mellitus type: type 2
--- NOTE | 2021-02-27 08:44 | PC.SOCIAL ---
IMM Update Updated pt of medicare rights. Verbalized understanding. Initialed, dated, timed and gave pt a copy and copy put in chart.
[2021-02-27] MEDS: allopurinol 100 mg Tablet PO (09:00)
[2021-02-27] MEDS: aspirin 81 mg EC Tablet PO (09:00)
[2021-02-27] MEDS: dilTIAZem ER (24HR) 240 mg Capsule PO (09:00)
[2021-02-27] MEDS: sotalol 80 mg Tablet PO (09:01)
[2021-02-27 10:30] VITALS: BP 137/77; PULSE 62; RESP 17; TEMP 36.4; O2SAT 98
--- NOTE | 2021-02-27 11:12 | PC.NURSE ---
Pt discharged home. Pts IV removed no redness or swelling noted. Discharge instructions given along with prescriptions and follow up appointment. Pt had no c/o pain or discomfort at the time of discharge.
--- NOTE | 2021-02-27 19:06 | P.PN_ITS ---
Subjective Subjective: Interval history: Patient converted into sinus rhythm last night after giving extra dose of sotalol. Medications: Reviewed: Yes Vitals/I&O/Wt Last Vital Signs Temp 97.5 F L 02/27/21 10:30 Pulse 62 02/27/21 10:30 Resp 17 02/27/21 10:30 BP 137/77 02/27/21 10:30 Pulse Ox 98 02/27/21 10:30 Weight last 48 hrs Weight 278 lb Weight 278 lb 6.4 oz Physical Exam Narrative: EXAM NARRATIVE: GENERAL: Patient is alert, awake and oriented x3. NECK: No jugular vein distension. HEENT: No cyanosis. No icterus. No pallor. HEART: Regular S1 and S2. No murmur, rub or gallop. LUNGS: Clear to auscultate bilaterally. ABDOMEN: Soft, nontender and nondistended. Positive bowel sounds. No guarding, rebound or tenderness. CENTRAL NERVOUS SYSTEM: Grossly nonfocal. Data : 02/27/21 03:15 02/27/21 03:15 Micro: Microbiology 02/22/21 14:55 Blood Culture - Final Blood NO GROWTH AFTER 5 DAYS 02/22/21 14:57 Blood Culture - Final Blood NO GROWTH AFTER 5 DAYS A&P Assessment and plan (1) Atrial fibrillation: [id number] score more than 4. Discussed with the patient regarding necessity of anticoagulation, patient agrees to it. We will start patient on oral anticoagulation. I also add beta-paloma to the Cardizem. Further plan will be advised as per progress of the patient. Once slow down will ask for echocardiogram to assess LV function or any valvular abnormality. We will switch patient to p.o. metoprolol and Cardizem along with anticoagulation as above. We will keep optimize medicine and then heart rate gets under control upon sitting and walking. Hopefully if you do fine may will discharge by tomorrow We will stop metoprolol will switch patient to sotalol 80 twice daily will ask for EKG 3 hours after each dose to assess QT QTC. We will switch to p.o. 180 mgCardizem. On today's visit I will continue Cardizem to 240 mg, we will stay sotalol at 80 mg twice a day continue to monitor QT QTC. Since heart rate still not under fully control I will increase sotalol to 120 mg the morning and will keep 80 mg in the night. Continue rivaroxaban. If patient does not convert by tomorrow we may will proceed with CONSUELO guided cardioversion already scheduled for 3:30 PM tomorrow. I have detailed discussion with the pat daniel regarding all risk benefit and alternative for the procedure including CONSUELO and electrical cardioversion. She understood it and would like to proceed with it. Patient converted back to sinus rhythm we would therefore cancel transesophageal echocardiogram and cardioversion. I will increase sotalol to 120 mg in the morning and keep 80 mg in the night. We will keep rivaroxaban as an anticoa gulation. Most likely discharge today. Follow-up with Dr. Soto in 7 days. Status: Acute Qualifiers: Atrial fibrillation type: paroxysmal Qualified Code(s): I48.0 - Paroxysmal atrial fibrillation (2) Mixed hyperlipidemia: Continue statin Status: Acute (3) Hypertension: Well-controlled. Continue current regimen Status: Chronic Qualifiers: Hypertension type: essential hypertension Qualified Code(s): I10 - Essential (primary) hypertension (4) Diabetes: As per medicine Status: Chronic Qualifiers: Diabetes mellitus type: type 2 Diabetes mellitus senior care insulin use: without senior care use Diabetes mellitus complication status: without complication Qualified Code(s): E11.9 - Type 2 diabetes mellitus without complications Attestations Medical Necessity Statement*: Patient require continuation hospitalization for above defined care. Coding Level of Care Code Established Pt Acute Environmental Health Safety Engineer for Nathan Chacko Patient Type Established History Detailed Exam Detailed Medical Decision Making Moderate Complexity Diagnoses Atrial fibrillation I48.0 Atrial fibrillation type: paroxysmal Mixed hyperlipidemia E78.2 Hypertension I10 Hypertension type: essential hypertension Diabetes E11.9 Diabetes mellitus type: type 2 Diabetes mellitus terminal operator insulin use: without senior care use Diabetes mellitus complication status: without complication
== END 2021-02-27 11:15 | disposition home or self-care (01) | DRG 309 ==
LOC: ER 14:43 → CSU 15:21
PROVIDERS: Admitting Provider Student in an Organized Health Care Education/Training Program; Emergency Provider Family Medicine; PCP Nurse Practitioner Family; Visit Provider Internal Medicine
DX: I48.0 Paroxysmal atrial fibrillation (principal); I24.8 Other forms of acute ischemic heart disease; E11.22 Type 2 diabetes mellitus with diabetic chronic kidney disease; I12.9 Hypertensive chronic kidney disease with stage 1 through stage 4 chronic kidney disease, or unspecified chronic kidney disease; N18.9 Chronic kidney disease, unspecified; E78.2 Mixed hyperlipidemia; G47.33 Obstructive sleep apnea (adult) (pediatric); Z98.84 Bariatric surgery status; Z87.891 Personal history of nicotine dependence; I34.0 Nonrheumatic mitral (valve) insufficiency; Z79.82 Long term (current) use of aspirin; Z79.84 Long term (current) use of oral hypoglycemic drugs
CPT/HCPCS: 36415; 36416; 71045; 80048; 80053; 80061; 81003; 82043; 82306; 82962; 83036; 83540; 83550; 83735; 83880; 84100; 84145; 84439; 84443; 84484; 85025; 85610; 85730; 87040; 87641; 93005; 93306; 94664; 96365; 96366; 96372; 96375; 96376; 99291; J1644; J1815; J3490; J7030

== ENCOUNTER 2021-04-01 20:00 | Outpatient (CLI) | payer MEDICARE, OTHER, SELFPAY | END 2021-04-01 20:01 | disposition home or self-care (01) | LOC: SLEEP 04-02 09:23 | PROVIDERS: PCP Nurse Practitioner Family; Visit Provider Nurse Practitioner Family | DX: G47.30 Sleep apnea, unspecified (principal) | CPT/HCPCS: 95810 ==

== ENCOUNTER 2021-06-28 08:07 | Emergency (ER) | payer MEDICARE, OTHER, SELFPAY ==
--- NOTE | 2021-06-28 08:11 | W.ED.ABDPA2 ---
HPI - Abdominal Pain General: Chief Complaint: Abdominal Pain Stated Complaint: Abdominal Cramping Time Seen by Provider: 06/28/21 08:10 History of Present Illness: HPI narrative: 75-year-old female presents emergency room with vaginal bleeding and pelvic pain. She states it began last night around 10 PM. She has a lot of cramping. She describes it as feeling like she is in labor. Patient has a history of atrial fibrillation and is on Xarelto but this is not a new medication for her. She is also diabetic. She denies any dysuria urgency or frequency she is not had any diarrhea denies hematochezia melena hematemesis coffee-ground emesis. She has not previously had issues with vaginal bleeding. She has not had a hysterectomy. She has not had any gynecological evaluation for several years. MD elicited complaint: abdominal pain Pertinent past history: other (Postmenopausal vaginal bleeding) Pain Consistency: intermittent Location: Suprapubic Severity: mild Quality: cramping Radiation: none Migration to: no migration Exacerbating factors: nothing Relieving factors: nothing Associated Symptoms: Denies anorexia, belching, bloating, change in bowel habits, change in stool character, chills, coffee ground emesis, constipation, GI cramping, diarrhea, dyspepsia, dysuria, excessive flatus, fever(s), heartburn, hematochezia, hematuria, hematemesis, fecal incontinence, loose stools, melena, nausea, poor appetite, syncope and vomiting Review of Systems Const: Denies: fever(s) or chills ENMT: Denies: throat pain, ear or mastoid pain, nasal discharge or nasal congestion Card: Denies: syncope Resp: Denies: dyspnea, productive cough or non-productive cough GI: Denies: nausea, vomiting, hematemesis, coffee ground emesis, heartburn, diarrhea, constipation, bloating, GI cramping, belching, excessive flatus, fecal incontinence, change in bowel habits, change in stool character, hematochezia or melena : Denies: dysuria or hematuria Skin/Breast: Denies: rash or pruritus PFS ED PFSH: Medical History Atrial fibrillation Acute. Stable. She was seen in the hospital by cardiology. Converted to normal sinus rhythm on sotolol . She has follow up with Dr. Soto. Continue with Sotolol, Diltiazem, Xarelto. Diabetes Hypertension Mixed hyperlipidemia Sleep apnea Solitary kidney, congenital Vitamin D deficiency Surgical History LAP-BAND surgery status Family History Denies family history of Clotting disorder Chronic kidney disease (CKD) Social History Smoking and tobacco status: former smoker Second hand smoke exposure: No Alcohol intake: never Desire information about alcohol rehabilitation?: No Counseling given: No Desire information about substance/drug rehabilitation?: No Counseling given: No Physical Exam Const: COMMON NORMALS: no acute distress GENERAL APPEARANCE: cooperative and comfortable ORIENTATION/CONSCIOUSNESS: Yes awake, Yes oriented to person, Yes oriented to place and Yes oriented to time HENMT: COMMON NORMALS: normocephalic, atraumatic and hearing grossly normal bilaterally HEAD & SCALP: normocephalic and atraumatic Neck/C-Spine: COMMON NORMALS: no JVD Resp: COMMON NORMALS: normal respiratory effort, No retractions, No use of accessory muscles and clear to auscultation bilaterally AUSCULTATION: clear to auscultation bilaterally Cardio: COMMON NORMALS: no JVD, regular rate, regular rhythm and No murmurs present (Cardio) RATE: regular rate RHYTHM: regular rhythm GI: COMMON NORMALS: Soft to palpation and No hepatosplenomegaly present AUSCULTATION: Yes normoactive bowel sounds PALPATION: Yes Soft to palpation, No Tenderness to palpation present (GI), No Guarding due to palpation present (GI) and Yes No hepatosplenomegaly present Extremity: COMMON NORMALS: normal to inspection, capillary refill normal, no clubbing, cyanosis or edema, no calf tenderness and no pedal edema Neuro: SENSORIUM/ORIENTATION: Yes oriented to person, Yes oriented to place and Yes oriented to time Skin: COMMON NORMALS: no rashes or lesions noted GENERAL SKIN EXAM: no rashes or lesions noted Course Vital Signs: Vital signs: Vital Signs Temperature 97.8 F 06/28/21 08:20 Pulse Rate 43 L 06/28/21 09:34 Respiratory Rate 18 06/28/21 09:34 Blood Pressure 169/98 06/28/21 09:34 Pulse Oximetry 95 06/28/21 09:34 MDM - Abdominal Pain MDM Narrative: Medical decision making narrative: Vaginal bleeding. Urine clean. Working to go ahead and stop her Xarelto. We will get her set up to see Freelance Patternmaker. Return if has further problems. Lab Data: Labs: Lab Results 06/28/21 06/28/21 06/28/21 08:53 08:53 08:53 WBC 11.6 10^3/uL H 10 ^3/uL (4.0-10.0) RBC 4.56 10^6/uL 10^6 /uL (4.1-5.3) Hgb 13.1 g/dL g/dL (11.5-15.3) Hct 42.0 % % (37.0-47.0) MCV 92.1 fl fl (81-99) MCH 28.7 pg pg (28.0-34.0) MCHC 31.2 g/dL g/dL (30.0-36.0) RDW 14.6 % % (12.1-15.1) Plt Count 218 10^3/cmm 10^3 /cmm (130-400) MPV 11.1 fL H fL (7.4-10.4) Neut % (Auto) 85.1 % % Lymph % (Auto) 9.6 % % [place] % (Auto) 4.3 % % Eos % (Auto) 0.5 % % Baso % (Auto) 0.2 % % Neut # (Auto) 9.89 10^3/uL H 10 ^3/uL (1.8-7.7) Lymph # (Auto) 1.1 10^3/uL 10^3/ uL (0.8-4.8) [place] # (Auto) 0.5 10^3/uL 10^3/ uL (0.2-0.9) Eos # (Auto) 0.1 10^3/uL 10^3/ uL (0.0-0.8) Baso # (Auto) 0.0 10^3/uL 10^3/ uL (0.0-0.1) Nucleated RBC % (a uto) 0 % % Nucleated RBCs # 0.0 /100WBC /100W BC PT 20.40 SECONDS H S ECONDS (12.1-14.9) INR 1.70 H (0.8-1.2) APTT 36.5 SECONDS SECO NDS (23.9-36.7) Sodium 139 mmol/L mmol/L (136-145) Potassium 4.6 mmol/L mmol/L (3.5-5.1) Chloride 104 mmol/L mmol/L (98-107) Carbon Dioxide 23 mmol/L mmol/L (22-29) Anion Gap 16.6 (5-19) BUN 20 mg/dL mg/dL (8-23) Creatinine 0.8 mg/dL mg/dL (0.5-0.9) GFR Calculation Not Reportable Glucose 171 mg/dL H mg/dL (65-115) Calculated Osmolal ity 295 mOsm/kg mOsm/ kg (285-295) Calcium 9.3 mg/dL mg/dL (8.5-10.5) Total Bilirubin 0.5 mg/dL mg/dL (0.15-1.2) AST 13 U/L U/L (0-32) ALT 18 U/L U/L (0-33) Alkaline Phosphata se 72 IU/L IU/L (35-105) Total Protein 6.5 g/dL L g/dL (6.6-8.7) Albumin 3.9 g/dL g/dL (3.5-5.2) Globulin 2.6 g/dL g/dL (1.3-4.6) Lipase 12 U/L L U/L (13-60) Urine Color Urine Appearance Urine pH Ur Specific Gravit y Urine Protein Urine Glucose (UA) Urine Ketones Urine Blood Urine Nitrate Urine Bilirubin Urine Urobilinogen Ur Leukocyte Lovely ase 06/28/21 08:58 WBC RBC Hgb Hct MCV MCH MCHC RDW Plt Count MPV Neut % (Auto) Lymph % (Auto) [place] % (Auto) Eos % (Auto) Baso % (Auto) Neut # (Auto) Lymph # (Auto) [place] # (Auto) Eos # (Auto) Baso # (Auto) Nucleated RBC % (a uto) Nucleated RBCs # PT INR APTT Sodium Potassium Chloride Carbon Dioxide Anion Gap BUN Creatinine GFR Calculation Glucose Calculated Osmolal ity Calcium Total Bilirubin AST ALT Alkaline Phosphata se Total Protein Albumin Globulin Lipase Urine Color Straw (Yellow) Urine Appearance Clear (CLEAR) Urine pH 5 (5-7) Ur Specific Gravit y 1.020 (1.005-1.030) Urine Protein Neg (Negative) Urine Glucose (UA) Norm (Normal) Urine Ketones 1+ H (Negative) Urine Blood Neg (Negative) Urine Nitrate Negative (Negative) Urine Bilirubin Neg (Negative) Urine Urobilinogen Norm mg/dL mg/dL (Negative) Ur Leukocyte Lovely ase Negative (Negative) Discharge Plan Discharge Patient Disposition: Home Clinical Impression: Post-menopausal bleeding, Atrial fibrillation, Chronic anticoagulation Condition: Stable Prescriptions: New hydrocodone-acetaminophen 5-325 mg tablet 1 tab PO Q6H PRN (Reason: pain) Qty: 12 RF: 0 Discontinued Xarelto 20 mg tablet 20 mg PO Q24H Qty: 90 RF: 3 No Action hydroxyzine HCl 25 mg tablet 25 mg PO BID PRN (Reason: itching) Qty: 60 RF: 2 allopurinol 100 mg tablet 100 mg PO DAILY RF: 0 diltiazem HCl 180 mg capsule,extended release 24hr 180 mg PO DAILY Qty: 90 RF: 3 aspirin 81 mg tablet,delayed release (DR/EC) 81 mg PO DAILY RF: 0 glimepiride 2 mg tablet See Rx Instructions .ROUTE .COMPLEX Qty: 30 RF: 5 tizanidine 4 mg tablet 4 mg PO BID PRN (Reason: muscle spasticity) Qty: 20 RF: 0 prednisone 20 mg tablet 40 mg PO DAILY 3 Days Qty: 6 RF: 0 sotalol 80 mg tablet See Rx Instructions PO BID Qty: 60 RF: 3 Discharge Orders: Discharge ED (Routine); Ordered 06/28/21 Ordered By: Chriss Rodriguez Referrals: Donnie Ridley DO [Primary Care Provider] - Discharge Diet: Usual diet Discharge Activity: Resume usual activity Patient Instructions: Opioid Safety Activity Restrictions/Additional Instructions: strategic communications manager will make arrangements for you to follow-up with gynecology. Recommend that you stop taking the Xarelto. Coding Level of Care Code ED Ada Accommodation Consultant for Nathan Fwd Exam Comprehensive
--- NOTE | 2021-06-28 08:17 | US_ITS ---
WS: [id number] TRANSABDOMINAL PELVIC ULTRASOUND HISTORY: post menopausal vag bleeding COMPARISON: None available. Uterus: 7.9 cm x 4.3 cm x 3.9 cm. Atrophic anteverted uterus. No fibroid identified. Limited visualiz ation due to nondistended bladder. Endometrium: 1.8 cm. Abnormally enlarged endometrium. No increased vascularity identified within the endometrium. This could be blood clot or neoplasm. No adnexal mass is identified. Neither ovary is visualized. No free fluid in the cul-de-sac. US/US pelvic complete* [id number] IMPRESSION: 1. Thickened and enlarged endometrium. No increased vascularity identified. Th is may be retained blood products such as clot and hematoma or neoplasm. Qualit y is limited without transvaginal imaging. Patient was unable to tolerate trans vaginal imaging at this time. 2. No adnexal mass identified.
[2021-06-28 08:20] VITALS: BP 177/74; PULSE 47; RESP 18; TEMP 36.6; O2SAT 97
[2021-06-28 09:10] LABS: Add Urine Microscopic? NO; Charge for UA Resulting for Rev
[2021-06-28 09:12] LABS: Basophils % 0.2 %; Eosinophils # 0.1 10^3/uL (0.0-0.8); Eosinophils % 0.5 %; Hemoglobin 13.1 g/dL (11.5-15.3); Lymphocytes # 1.1 10^3/uL (0.8-4.8); Lymphocytes % 9.6 %; Mean Corpuscular HGB Conc 31.2 g/dL (30.0-36.0); Mean Corpuscular Hemoglobin 28.7 pg (28.0-34.0); Mean Corpuscular Volume 92.1 fl (81-99); Mean Platelet Volume 11.1 fL (7.4-10.4); Monocytes # 0.5 10^3/uL (0.2-0.9); Monocytes % 4.3 %; Neutrophils # 9.89 10^3/uL (1.8-7.7); Neutrophils % 85.1 %; Nucleated Red Blood Cells % 0 %; Platelet Count 218 10^3/cmm (130-400); Red Blood Count 4.56 10^6/uL (4.1-5.3); Red Cell Distribution Width 14.6 % (12.1-15.1); White Blood Count 11.6 10^3/uL (4.0-10.0)
[2021-06-28 09:17] LABS: Bilirubin Urine Neg (Negative); Blood Urine Neg (Negative); Glucose Urine UA Norm (Normal); Ketones Urine 1+ (Negative); Leukocyte Esterase Urine Negative (Negative); Nitrate Urine Negative (Negative); Protein Urine Neg (Negative); Urine Appearance Clear (CLEAR); Urine Color Straw (Yellow); Urobilinogen Urine Norm (Negative); pH Urine 5 (5-7)
[2021-06-28] MEDS: morphine 4 mg/mL SDV 1 mL 2 MG IVP ×2 (09:23→11:15)
[2021-06-28 09:28] LABS: Partial Thromboplastin Time 36.5 SECONDS (23.9-36.7)
[2021-06-28 09:31] LABS: Alanine Aminotransferase 18 U/L (0-33); Albumin Level 3.9 g/dL (3.5-5.2); Alkaline Phosphatase 72 IU/L (35-105); Anion Gap 16.6 (5-19); Aspartate Amino Transferase 13 U/L (0-32); Blood Urea Nitrogen 20 mg/dL (8-23); Calcium 9.3 mg/dL (8.5-10.5); Carbon Dioxide 23 mmol/L (22-29); Chloride 104 mmol/L (98-107); Globulin 2.6 g/dL (1.3-4.6); Glucose 171 mg/dL (65-115); Lipase 12 U/L (13-60); Osmolality Calculated 295 mOsm/kg (285-295); Potassium 4.6 mmol/L (3.5-5.1); Sodium 139 mmol/L (136-145); Total Bilirubin 0.5 mg/dL (0.15-1.2); Total Protein 6.5 g/dL (6.6-8.7)
[2021-06-28 09:34] VITALS: BP 169/98; PULSE 43; RESP 18; O2SAT 95
[2021-06-28 11:39] VITALS: BP 178/80; PULSE 48; RESP 18; O2SAT 98
--- NOTE | 2021-06-28 14:07 | DCPLANNER ---
group manager had message to schedule a follow up appointment for patient with [facility]. group manager called [facility], spoke with Vahe, gave clinic patients information. group manager was told that patients information would be printed and reviewed. Clinic will call patient with appointment information.
--- NOTE | 2021-09-15 16:11 | DCPLANNER ---
Patient had a follow up appointment scheduled with [facility] - patient did attend appointment.
== END 2021-06-28 11:40 | disposition home or self-care (01) ==
PROVIDERS: Emergency Provider Family Medicine; PCP Family Medicine
DX: N95.0 Postmenopausal bleeding (principal); I48.91 Unspecified atrial fibrillation; D68.318 Other hemorrhagic disorder due to intrinsic circulating anticoagulants, antibodies, or inhibitors; Z79.84 Long term (current) use of oral hypoglycemic drugs; Z79.82 Long term (current) use of aspirin; E11.9 Type 2 diabetes mellitus without complications; I10 Essential (primary) hypertension; E78.2 Mixed hyperlipidemia; Z87.891 Personal history of nicotine dependence
CPT/HCPCS: 76856; 80053; 81003; 83690; 85025; 85610; 85730; 96374; 96375; 99283; J2270

== ENCOUNTER → 2021-07-04 15:34 | Outpatient (BNVA) | payer MEDICARE, OTHER, SELFPAY | PROVIDERS: PCP Family Medicine; Visit Provider Obstetrics & Gynecology | DX: N95.0 Postmenopausal bleeding (principal) | CPT/HCPCS: 88305 ==

== ENCOUNTER 2022-02-02 19:37 | Emergency (ER) | payer MEDICARE, OTHER, SELFPAY ==
[2022-02-02 19:44] VITALS: BP 200/81; PULSE 54; RESP 20; TEMP 36.6; O2SAT 97; BMI 41.9
--- NOTE | 2022-02-02 21:20 | CTR_ITS ---
PROCEDURE INFORMATION: Exam: CT Abdomen And Pelvis Without Contrast Exam date and time: 02/02/2022 10:13 PM Age: 76 years old Clinical indication: Nausea and vomiting; Abdominal pain; Prior surgery; Surgery type: Lap band; Additional info: Lap band with abd pain and vomiting TECHNIQUE: Imaging protocol: Computed tomography of the abdomen and pelvis without contrast. Radiation optimization: All CT scans at this facility use at least one of these dose optimization techniques: automated exposure control; mA and/or kV adjustment per patient size (includes targeted exams where dose is matched to clinical indication); or iterative reconstruction. COMPARISON: US pelvic complete* [id number] 06/28/2021 8:38 AM RADIATION DOSE METRICS: Total DLP (mGy-cm): 1804.42 FINDINGS: Lungs: Right lower lobe atelectasis. Liver: Normal. No mass. Gallbladder and bile ducts: Cholelithiasis. Pancreas: Normal. No ductal dilation. Spleen: Normal. No splenomegaly. Adrenal glands: Normal. No mass. Kidneys and ureters: Several left kidney nonobstructing calyceal stones. Stomach and bowel: Minimal edema in wall thickening seen in the mid sigmoid colon suggestive of a mild diverticulitis, consider correlation with colonoscopy history to exclude an underlying mass lesion. Gastric band seen over the upper stomach. Appendix: No evidence of appendicitis. Intraperitoneal space: Unremarkable. No free air. No significant fluid collection. Vasculature: Unremarkable. No abdominal aortic aneurysm. Lymph nodes: Unremarkable. No enlarged lymph nodes. Urinary bladder: Unremarkable as visualized. Reproductive: Unremarkable as visualized. Bones/joints: Unremarkable. No acute fracture. Soft tissues: Unremarkable. CT/CT abdomen pelvis con [id number] IMPRESSION: 1. Minimal edema in wall thickening seen in the mid sigmoid colon suggestive of a mild diverticulitis, consider correlation with colonoscopy history to exclude an underlying mass lesion. 2. Right lower lobe atelectasis. 3. Gastric band seen over the upper stomach. 4. Cholelithiasis. 5. Several left kidney nonobstructing calyceal stones.
--- NOTE | 2022-02-02 21:22 | ED_ITS ---
HPI - General Adult General: Chief complaint: Abdominal Pain Stated complaint: N/V/D Time Seen by Provider: 02/02/22 21:12 Source: patient and family Mode of arrival: ambulatory Limitations: no limitations History of Present Illness: Patient presents to our emergency department because of 3 days of nausea vomiting and loose stools. She states that symptoms began approximate 3 days ago. She is unaware of any known exposure to infectious disease other than her had some mild body aches last week. She states she is not been otherwise out of the country or recent travel. She has had basic COVID immunization series +2 boosters. She denies any cough sore throat fevers known. She states that she been taking most of her medications. She denies any blood in her stool or blood in her emesis. She denies any black tarry stools. She is having some upper abdominal discomfort and cramping. She has a history of a Lap-Band placed approximately 4 years ago and is lost about 50+ pounds. She states she still making urine. She has a history of intermittent atrial fib and takes Xarelto as well as 81 mg of aspirin daily Karan. She is not any chest pain palpitations or difficulty breathing. Associated symptoms: Reports nausea and vomiting; Deny chest pain, dyspnea, headache(s), rash, palpitations or syncope Review of Systems Const: Reports: body aches; Denies: fever(s) or chills Eyes: Denies: change in vision or blurry vision ENMT: Denies: throat pain or odynophagia Card: Denies: chest pain, palpitations, irregular heart rhythm, edema or syncope Resp: Denies: dyspnea, productive cough or non-productive cough GI: Reports: abdominal pain, nausea and vomiting; Denies: hematemesis, hematochezia or melena : Denies: flank pain, difficulty voiding, dysuria or urinary frequency Musc: Denies: neck pain, back pain, extremity pain or extremity swelling Skin/Breast: Denies: rash or pruritus Neuro: Denies: headache(s), numbness in extremities or weakness in extremities Endo: Denies: polyuria Ki/Lymph: Reports: easy bruising PFS ED PFSH: Medical History Atrial fibrillation Diabetes Hypertension Mixed hyperlipidemia Osteoarthritis of knees, bilateral Sleep apnea Solitary kidney, congenital Vitamin D deficiency Surgical History LAP-BAND surgery status Family History Family/Other No problems noted. Father CAD (coronary artery disease) Diabetes Hyperlipidemia Hypertension Brother Diabetes Mother Brain tumor Denies family history of Clotting disorder Chronic kidney disease (CKD) Bleeding disorder Thyroid disease Stroke Social History Smoking and tobacco status: never smoked Second hand smoke exposure: No Alcohol intake: never Desire information about alcohol rehabilitation?: No Counseling given: No Desire information about substance/drug rehabilitation?: No Counseling given: No Physical Exam Narrative: EXAM NARRATIVE: The patient appears to be comfortable. She makes good eye contact and is goal- directed in her speech. Const: COMMON NORMALS: no acute distress, patient oriented x3 and alert GENERAL APPEARANCE: cooperative NUTRITIONAL APPEARANCE: overweight HENMT: COMMON NORMALS: normocephalic, atraumatic, Normal nasal mucous membran es and turbinates present and moist oral mucous membranes HEAD & SCALP: n ormocephalic and atraumatic FACE & SINUS: normal facial exam NOSE: Normal nasal mucous membranes and turbinates present Eye: COMMON NORMALS: Equal, round and reactive pupils present, conjunctivae normal and no scleral icterus CONJUNCTIVA: Yes conjunctivae normal PUPIL: Yes Equal, round and reactive pupils present Neck/C-Spine: COMMON NORMALS: full ROM, supple, no JVD and No carotid bruits Chest: COMMONS NORMALS: normal inspection of the chest and normal palpation of entire chest wall Resp: COMMON NORMALS: normal respiratory effort, No use of accessory muscles and clear to auscultation bilaterally AUSCULTATION: clear to auscultation bilaterally Cardio: COMMON NORMALS: no JVD, regular rate, regular rhythm, No murmurs present (Cardio) and Peripheral pulses 2+ throughout RATE: regular rate RHYTHM: regular rhythm PERIPHERAL PULSES: Peripheral pulses 2+ throughout GI: COMMON NORMALS: Soft to palpation PALPATION: Yes Soft to palpation, Yes Tenderness to palpation present (GI) (Mild epigastric), No Guarding due to palpation present (GI), No Rigid due to palpation and No Rebound tenderness present Back/Pelvis: COMMON NORMALS: thoracic and lumbar spine normal to inspection, no thoracic nor lumbar tenderness and thoraco-lumbar ROM normal Extremity: COMMON NORMALS: normal to inspection, full ROM, capillary refill no rmal, no calf tenderness and no pedal edema Neuro: COMMON NORMALS: patient oriented x3, moves all extremities, no focal motor deficits and no sensory deficits noted SENSORIUM/ORIENTATION: Yes alert SPEECH: speech normal Psych: COMMON NORMALS: mental status grossly normal and cooperative Skin: COMMON NORMALS: no rashes or lesions noted, turgor normal and no petechiae GENERAL SKIN EXAM: no rashes or lesions noted and turgor normal Course Reevaluation(s): Reevaluation #1: Patient's improved has no evidence of emesis since arrival. She is receiving IV fluids. Reviewed her labs and other findings with her and her spouse. She does have evidence suggesting a urinary tract infection as well as there is some subtle change in her colon which may reflect mild diverticulitis. She has incidental gallstones but I do not believe that this is a acute process at this time. She has no pericolic fluid, no transaminitis, no elevated bilirubin or al k phos to suggest acute cholecystitis. It seems more likely this is urinary tract infection with associated other symptoms. The plan will be to give her a loading dose of antibiotics and continue her on Augmentin for the next 7 days to cover both lower GI tract as well as her urinary tract. Also provide her with a prescription from Levsin. Discussed return precautions in detail and further evaluation should she have persistent worsening or new symptoms. Time: 23:16 Vital Signs: Vital signs: Vital Signs Temperature 97.8 F 02/02/22 19:44 Pulse Rate 54 L 02/02/22 19:44 Respiratory Rate 16 02/02/22 22:48 Blood Pressure 200/81 02/02/22 19:44 Pulse Oximetry 97 02/02/22 19:44 [facility] - General Adult Medical Decision Making Patient presents with a several day history of vomiting and diarrhea. No known fevers no blood in stool or other concerning findings. Her clinical examination is reassuring with only recent significant finding was some very minimal epigastric tenderness. No right upper quadrant tenderness no peritoneal signs rebound guarding etc. Her studies tonight reveal no evidence of bowel obstruction or surgical abdomen. She had does have some incidental gallstones as well as perhaps mild diverticulitis but no other worrisome findings. She does have a urinary tract infection by urinalysis this evening. COVID-19 is negative. She was treated with antibiotics IV fluids and antiemetics and is clinically stable for outpatient management with return precautions. Lab Data I reviewed the patient's lab results. : 02/02/22 22:10 02/02/22 22:10 Radiology Impressions Abdomen/Pelvis CT 02/02/22 21:20 IMPRESSION: 1. Minimal edema in wall thickening seen in the mid sigmoid colon suggestive of a mild diverticulitis, consider correlation with colonoscopy history to exclude an underlying mass lesion. 2. Right lower lobe atelectasis. 3. Gastric band seen over the upper stomach. 4. Cholelithiasis. 5. Several left kidney nonobstructing calyceal stones. Laboratory Results WBC 9.2 10^3/uL (4.0-10.0) 02/02/22 22:10 RBC 5.04 10^6/uL (4.1-5.3) 02/02/22 22:10 Hgb 13.4 g/dL (11.5-15.3) 02/02/22 22:10 Hct 41.5 % (37.0-47.0) 02/02/22 22:10 MCV 82.3 fl (81-99) 02/02/22 22:10 MCH 26.6 pg (28.0-34.0) L 02/02/22 22:10 MCHC 32.3 g/dL (30.0-36.0) 02/02/22 22:10 RDW 16.2 % (12.1-15.1) H 02/02/22 22:10 Plt Count 233 10^3/cmm (130-400) 02/02/22 22:10 MPV 10.5 fL (7.4-10.4) H 02/02/22 22:10 Neut % (Auto) 86.5 % 02/02/22 22:10 Lymph % (Auto) 9.8 % 02/02/22 22:10 [place] % (Auto) 3.1 % 02/02/22 22:10 Eos % (Auto) 0.1 % 02/02/22 22:10 Baso % (Auto) 0.2 % 02/02/22 22:10 Neut # (Auto) 7.94 10^3/uL (1.8-7.7) H 02/02/22 22:10 Lymph # (Auto) 0.9 10^3/uL (0.8-4.8) 02/02/22 22:10 [place] # (Auto) 0.3 10^3/uL (0.2-0.9) 02/02/22 22:10 Eos # (Auto) 0.0 10^3/uL (0.0-0.8) 02/02/22 22:10 Baso # (Auto) 0.0 10^3/uL (0.0-0.1) 02/02/22 22:10 Nucleated RBC % (auto) 0 % 02/02/22 22:10 Nucleated RBCs # 0.0 /100WBC 02/02/22 22:10 Sodium 136 mmol/L (136-145) 02/02/22 22:10 Potassium 4.3 mmol/L (3.5-5.1) 02/02/22 22:10 Chloride 103 mmol/L (98-107) 02/02/22 22:10 Carbon Dioxide 18 mmol/L (22-29) L 02/02/22 22:10 Anion Gap 19.3 (5-19) H 02/02/22 22:10 BUN 16 mg/dL (8-23) 02/02/22 22:10 Creatinine 0.9 mg/dL (0.5-0.9) 02/02/22 22:10 GFR Calculation Not Reportable 02/02/22 22:10 Glucose 185 mg/dL (65-115) H 02/02/22 22:10 Calculated Osmolality 288 mOsm/kg (285-295) 02/02/22 22:10 Calcium 9.6 mg/dL (8.5-10.5) 02/02/22 22:10 Total Bilirubin 0.7 mg/dL (0.15-1.2) 02/02/22 22:10 AST 8 U/L (0-32) 02/02/22 22:10 ALT 8 U/L (0-33) 02/02/22 22:10 Alkaline Phosphatase 84 IU/L (35-105) 02/02/22 22:10 Total Protein 7.2 g/dL (6.6-8.7) 02/02/22 22:10 Albumin 3.7 g/dL (3.5-5.2) 02/02/22 22:10 Globulin 3.5 g/dL (1.3-4.6) 02/02/22 22:10 Lipase 8 U/L (13-60) L 02/02/22 22:10 Urine Color Yellow (Yellow) 02/02/22 22:23 Urine Appearance Turbid (CLEAR) 02/02/22 22:23 Urine pH 5 (5-7) 02/02/22 22:23 Ur Specific [place] 1.025 (1.005-1.030) 02/02/22 22:23 Urine Protein 1+ (Negative) H 02/02/22 22:23 Urine Glucose (UA) 1+ (Normal) H 02/02/22 22:23 Urine Ketones 2+ (Negative) H 02/02/22 22:23 Urine Blood Neg (Negative) 02/02/22 22:23 Urine Nitrate Positive (Negative) H 02/02/22 22:23 Urine Bilirubin Neg (Negative) 02/02/22 22:23 Urine Urobilinogen Norm mg/dL (Negative) 02/02/22 22:23 Ur Leukocyte Esterase Negative (Negative) 02/02/22 22:23 Urine RBC 0-4 /hpf (0-2) H 02/02/22 22:23 Urine WBC 5-10 /hpf (0-5) H 02/02/22 22:23 Ur Squamous Epith Cells 5-10 /hpf (0-5) H 02/02/22 22:23 Amorphous Sediment Not Reportable 02/02/22 22:23 Urine Bacteria 3+ /hpf (NONE) H 02/02/22 22:23 Urine Mucus Trace /hpf 02/02/22 22:23 SARS-CoV-2 Ag (Rapid) Negative (Negative) 02/02/22 22:23 Discharge Plan Discharge Patient Disposition: Home Clinical Impression: Urinary tract infection, Diverticulitis Condition: Stable Prescriptions: New ondansetron 4 mg tablet,disintegrating 4 mg PO Q8H 3 Days Qty: 9 0RF amoxicillin-pot clavulanate 875-125 mg tablet 1 tab PO BID Qty: 14 0RF hyoscyamine sulfate [Levsin] 0.125 mg tablet 0.125 mg PO Q8H PRN (Reason: dyspepsia) Qty: 20 0RF No Action allopurinol 100 mg tablet 100 mg PO DAILY 0RF bariatric vitamins PO 0RF biotin 5 mg capsule 5 mg PO DAILY 0RF diltiazem HCl 180 mg capsule,extended release 24hr 180 mg PO DAILY Qty: 90 4RF glimepiride 2 mg tablet See Rx Instructions .ROUTE .COMPLEX Qty: 90 1RF Dose Instruction: TAKE 1 TABLET EVERY DAY Rx Instructions: TAKE 1 TABLET EVERY DAY. hydrocodone-acetaminophen 5-325 mg tablet 1 tab PO Q6H PRN (Reason: pain) 7 Days Qty: 30 0RF aspirin 81 mg tablet,delayed release (DR/EC) 81 mg PO DAILY 0RF montelukast [Singulair] 10 mg tablet 10 mg PO DAILY Qty: 30 1RF sotalol 80 mg tablet 240 mg PO DIRECTED Qty: 225 4RF Rx Instructions: 160mg (2 tabs) in AM and 80mg (1 tab) in PM Xarelto 20 mg tablet 20 mg PO DAILY Qty: 30 3RF Rx Instructions: Please fill under 340B hydrocodone-acetaminophen 5-325 mg tablet 1 tab PO Q6H PRN (Reason: pain) Qty: 12 0RF Discharge Orders: Discharge ED (Routine); Ordered 02/02/22 Ordered By: Dereck Pennington Referrals: Donnie Ridley DO [Primary Care Provider] - 7-10 days Discharge Diet: Advance as tolerated and Usual diet Discharge Activity: Resume usual activity Patient Instructions: Opioid Safety Activity Restrictions/Additional Instructions: We have provided a prescription for antibiotics as well as a prescription for nausea medicine and cramping medicine. Take the antibiotics as prescribed any other medications as you need them. Avoid milk products caffeinated beverages until you are feeling better. Sure you drink at least 1 to 2 quarts of fluids daily in addition to your other intake. If you do not continue to improve, worsen or develop new or other concerning symptoms at any time return to this or the nearest emergency department. Coding Level of Care Code ED Intensive Care Ambulance Paramedic for Nathan Chacko Exam Comprehensive
[2022-02-02 22:20] LABS: Basophils % 0.2 %; Eosinophils % 0.1 %; Hematocrit 41.5 % (37.0-47.0); Hemoglobin 13.4 g/dL (11.5-15.3); Lymphocytes # 0.9 10^3/uL (0.8-4.8); Lymphocytes % 9.8 %; Mean Corpuscular HGB Conc 32.3 g/dL (30.0-36.0); Mean Corpuscular Hemoglobin 26.6 pg (28.0-34.0); Mean Corpuscular Volume 82.3 fl (81-99); Mean Platelet Volume 10.5 fL (7.4-10.4); Monocytes # 0.3 10^3/uL (0.2-0.9); Monocytes % 3.1 %; Neutrophils # 7.94 10^3/uL (1.8-7.7); Neutrophils % 86.5 %; Nucleated Red Blood Cells % 0 %; Platelet Count 233 10^3/cmm (130-400); Red Blood Count 5.04 10^6/uL (4.1-5.3); Red Cell Distribution Width 16.2 % (12.1-15.1); White Blood Count 9.2 10^3/uL (4.0-10.0)
[2022-02-02] MEDS: sodium chloride 0.9% 1,000 ML 999 ML IV (22:34)
[2022-02-02] MEDS: ondansetron 2 mg/ML SDV 2 mL 4 MG IVP (22:34)
[2022-02-02 22:42] LABS: Add Urine Microscopic? YES; Bilirubin Urine Neg (Negative); Blood Urine Neg (Negative); Glucose Urine UA 1+ (Normal); Ketones Urine 2+ (Negative); Leukocyte Esterase Urine Negative (Negative); Nitrate Urine Positive (Negative); Protein Urine 1+ (Negative); Specific Gravity, Urine 1.025 (1.005-1.030); Urine Appearance Turbid (CLEAR); Urine Color Yellow (Yellow); Urobilinogen Urine Norm (Negative); pH Urine 5 (5-7)
[2022-02-02 22:43] LABS: Alanine Aminotransferase 8 U/L (0-33); Albumin Level 3.7 g/dL (3.5-5.2); Alkaline Phosphatase 84 IU/L (35-105); Anion Gap 19.3 (5-19); Aspartate Amino Transferase 8 U/L (0-32); Blood Urea Nitrogen 16 mg/dL (8-23); Calcium 9.6 mg/dL (8.5-10.5); Carbon Dioxide 18 mmol/L (22-29); Chloride 103 mmol/L (98-107); Globulin 3.5 g/dL (1.3-4.6); Glucose 185 mg/dL (65-115); Lipase 8 U/L (13-60); Osmolality Calculated 288 mOsm/kg (285-295); Potassium 4.3 mmol/L (3.5-5.1); Sodium 136 mmol/L (136-145); Total Bilirubin 0.7 mg/dL (0.15-1.2); Total Protein 7.2 g/dL (6.6-8.7)
[2022-02-02 22:44] LABS: Add Urine Culture? Yes; Bacteria Urine 3+ /hpf; Mucus Urine TRACE /hpf; RBC Urine 0-4 /hpf (0-2)
[2022-02-02 22:48] VITALS: RESP 16
[2022-02-02] MEDS: fentaNYL 50 mcg/mL INJ 2mL 25 MCG IVP (22:48)
[2022-02-02 22:52] LABS: SARS Covid-2 Antigen Negative (Negative)
[2022-02-02] MEDS: ceFAZolin 1,000 MG in sodium chloride 0.9% (plus) 50 ML 100 MG IV (23:22)
[2022-02-03] MEDS: hyoscyamine ODT 0.125 mg Tablet 0.25 MG PO (00:48)
[2022-02-03] MEDS: ondansetron 2 mg/ML SDV 2 mL 4 MG IVP (00:51)
[2022-02-03 00:52] VITALS: BP 135/78; PULSE 67; RESP 16; O2SAT 95
== END 2022-02-03 00:53 | disposition home or self-care (01) ==
PROVIDERS: Emergency Provider Emergency Medicine; PCP Family Medicine
DX: N39.0 Urinary tract infection, site not specified (principal); K57.92 Diverticulitis of intestine, part unspecified, without perforation or abscess without bleeding; E11.9 Type 2 diabetes mellitus without complications; I10 Essential (primary) hypertension; E78.5 Hyperlipidemia, unspecified
CPT/HCPCS: 74176; 80053; 81001; 83690; 85025; 87086; 87426; 96365; 96375; 96376; 99284; J0690; J2405; J3010; J7030

== ENCOUNTER 2022-06-12 09:55 | Outpatient (CLI) | payer MEDICARE, OTHER, SELFPAY ==
--- NOTE | 2022-06-12 10:05 | MM_ITS ---
WS: [id number] BILATERAL SCREENING DIGITAL TOMOSYNTHESIS MAMMOGRAM WITH CAD HISTORY: BRCA screening COMPARISON: 11/07/2019, 12/03/2020 and 05/01/2017 Bilateral CC and MLO views with tomosynthesis and synthetic mammography submitted. Computer aided det ection analyzed. Breast composition: There are scattered areas of fibroglandular density. No suspicious masses, microc alcifications or architectural distortion. Benign calcifications. Small 5 mm asymmetry in the central RIGHT breast is in the very superficial soft tissues seen on the tomosynthesis. MM/[place] [id number] IMPRESSION: BI-RADS: 2-Benign FOLLOW UP: 1 Year Follow-up
== END 2022-06-12 09:56 | disposition home or self-care (01) ==
LOC: RAD 09:56
PROVIDERS: PCP Family Medicine; Visit Provider Family Medicine
DX: Z12.31 Encounter for screening mammogram for malignant neoplasm of breast (principal)
CPT/HCPCS: 77063; 77067

== ENCOUNTER → 2022-06-16 10:05 | Outpatient (BNVA) | payer MEDICARE, OTHER, SELFPAY | PROVIDERS: PCP Family Medicine; Referring Provider Family Medicine; Visit Provider Specialist | DX: M17.0 Bilateral primary osteoarthritis of knee (principal); M21.061 Valgus deformity, not elsewhere classified, right knee; M21.062 Valgus deformity, not elsewhere classified, left knee | CPT/HCPCS: 73560; 73565; 99204 ==

== ENCOUNTER → 2022-07-03 09:36 | Outpatient (BNVA) | payer MEDICARE, OTHER, SELFPAY | PROVIDERS: PCP Family Medicine; Visit Provider Specialist | DX: M21.061 Valgus deformity, not elsewhere classified, right knee (principal); M21.062 Valgus deformity, not elsewhere classified, left knee; M17.0 Bilateral primary osteoarthritis of knee; Z71.89 Other specified counseling | CPT/HCPCS: 20610; J7318 ==

== ENCOUNTER → 2022-08-21 09:25 | Outpatient (BNVA) | payer MEDICARE, OTHER, SELFPAY | PROVIDERS: PCP Family Medicine; Visit Provider Specialist | DX: M17.0 Bilateral primary osteoarthritis of knee (principal); Z71.89 Other specified counseling | CPT/HCPCS: 20610; J1100; J2795; J3301 ==

== ENCOUNTER → 2022-08-25 12:28 | Outpatient (BNVA) | payer MEDICARE, OTHER, SELFPAY | PROVIDERS: PCP Family Medicine; Visit Provider Nurse Practitioner Family | DX: R39.9 Unspecified symptoms and signs involving the genitourinary system (principal) | CPT/HCPCS: 81000 ==

== ENCOUNTER → 2022-10-01 10:54 | Outpatient (BNVA) | payer MEDICARE, OTHER, SELFPAY | PROVIDERS: PCP Family Medicine; Visit Provider Internal Medicine Cardiovascular Disease | DX: I48.0 Paroxysmal atrial fibrillation (principal); R60.0 Localized edema; I10 Essential (primary) hypertension; G47.30 Sleep apnea, unspecified; E78.2 Mixed hyperlipidemia; E11.9 Type 2 diabetes mellitus without complications; Z79.84 Long term (current) use of oral hypoglycemic drugs; I44.0 Atrioventricular block, first degree; R94.31 Abnormal electrocardiogram [ECG] [EKG] | CPT/HCPCS: 93005; 99214; Q3014 ==

== ENCOUNTER 2023-06-17 12:26 | Outpatient (CLI) | payer MEDICARE, OTHER, SELFPAY ==
--- NOTE | 2023-06-17 12:48 | MM_ITS ---
WS: [id number] BILATERAL 3D TOMOSYNTHESIS DIGITAL SCREENING MAMMOGRAPHY WITH CAD CLINICAL INFORMATION: SCREENING HISTORY: Screening mammogram. No current complaints. COMPARISON: 2021 TECHNIQUE: Bilateral CC and MLO views. FINDINGS: Scattered fibroglandular densities bilaterally. No suspicious focal mass, asymmetry, calcifications, or architectural distortion. No evidence of malignancy. Incidental punctate and lucent centered calci fications. Vascular calcifications. IMPRESSION: MM/[place] [id number] BI-RADS: 2-Benign FOLLOW UP: 1 Year Follow-up Recommend return to annual screening mammography.
== END 2023-06-17 12:27 | disposition home or self-care (01) ==
LOC: RAD 12:27
PROVIDERS: PCP Family Medicine; Visit Provider Family Medicine
DX: Z12.31 Encounter for screening mammogram for malignant neoplasm of breast (principal)
CPT/HCPCS: 77063; 77067

== ENCOUNTER → 2023-06-22 12:12 | Outpatient (BNVA) | payer MEDICARE, OTHER, SELFPAY | PROVIDERS: PCP Family Medicine; Visit Provider Family Medicine | DX: R32 Unspecified urinary incontinence (principal); E55.9 Vitamin D deficiency, unspecified; E78.2 Mixed hyperlipidemia; I10 Essential (primary) hypertension; I48.91 Unspecified atrial fibrillation; R60.0 Localized edema; E11.9 Type 2 diabetes mellitus without complications | CPT/HCPCS: 80053; 80061; 81000; 82306; 83036; 84443; 84550; 85025 ==

== ENCOUNTER → 2023-09-16 13:42 | Outpatient (BNVA) | payer MEDICARE, OTHER, SELFPAY | PROVIDERS: PCP Family Medicine; Visit Provider Nurse Practitioner Family | DX: R39.9 Unspecified symptoms and signs involving the genitourinary system (principal); N39.0 Urinary tract infection, site not specified | CPT/HCPCS: 81000; 87077; 87086; 87184 ==

== ENCOUNTER → 2023-10-12 15:36 | Outpatient (BNVA) | payer MEDICARE, OTHER, SELFPAY | PROVIDERS: PCP Family Medicine; Visit Provider Family Medicine | DX: R30.0 Dysuria | CPT/HCPCS: 81000 ==

== ENCOUNTER → 2023-12-23 14:29 | Outpatient (BNVA) | payer MEDICARE, OTHER, SELFPAY | PROVIDERS: PCP Family Medicine; Visit Provider Internal Medicine | DX: I48.0 Paroxysmal atrial fibrillation (principal); I10 Essential (primary) hypertension; G47.30 Sleep apnea, unspecified; E78.2 Mixed hyperlipidemia; E11.9 Type 2 diabetes mellitus without complications; Z79.84 Long term (current) use of oral hypoglycemic drugs; Z87.891 Personal history of nicotine dependence; Z79.01 Long term (current) use of anticoagulants | CPT/HCPCS: 99214 ==

== ENCOUNTER → 2024-01-20 10:34 | Outpatient (BNVA) | payer MEDICARE, OTHER, SELFPAY | PROVIDERS: PCP Family Medicine; Visit Provider Family Medicine | DX: N39.0 Urinary tract infection, site not specified (principal) | CPT/HCPCS: 81000 ==

== ENCOUNTER → 2024-04-29 14:05 | Outpatient (BNVA) | payer MEDICARE, OTHER, SELFPAY | PROVIDERS: PCP Family Medicine; Visit Provider Family Medicine | DX: Z98.84 Bariatric surgery status (principal); I10 Essential (primary) hypertension; I48.0 Paroxysmal atrial fibrillation; E78.2 Mixed hyperlipidemia; E11.9 Type 2 diabetes mellitus without complications; E55.9 Vitamin D deficiency, unspecified; M10.9 Gout, unspecified; N95.0 Postmenopausal bleeding | CPT/HCPCS: 80053; 80061; 82043; 82306; 82607; 83036; 83540; 84443; 84550; 85025 ==

== ENCOUNTER 2024-06-21 12:16 | Outpatient (CLI) | payer MEDICARE, OTHER, SELFPAY ==
--- NOTE | 2024-06-21 12:22 | MM_ITS ---
WS: [id number] BILATERAL 3D TOMOSYNTHESIS DIGITAL SCREENING MAMMOGRAM WITH CAD CLINICAL INFORMATION: SCREENING HISTORY: Screening mammogram. No current complaints. COMPARISON: 2022 TECHNIQUE: Bilateral CC and MLO views. FINDINGS: Fatty-replaced breasts bilaterally. No suspicious focal mass, asymmetry, calcifications, or architectural sales consultant ural distortion. No evidence of malignancy. Incidental punctate and lucent centered calcifications. V ascular calcifications. MM/MM scr tomosynthesis [id number] IMPRESSION: DENSITY: There are scattered areas of fibroglandular density. BI-RADS: 2 - Benign. FOLLOW UP: 1 Year Follow-up Recommend return to annual screening mammography.
== END 2024-06-21 12:17 | disposition home or self-care (01) ==
LOC: RAD 12:17
PROVIDERS: PCP Family Medicine; Visit Provider Family Medicine
DX: Z12.31 Encounter for screening mammogram for malignant neoplasm of breast (principal); R92.313 Mammographic fatty tissue density, bilateral breasts; R92.1 Mammographic calcification found on diagnostic imaging of breast
CPT/HCPCS: 77063; 77067

== ENCOUNTER 2024-07-30 09:35 | Emergency (ER) | payer MEDICARE, OTHER, SELFPAY ==
[2024-07-30 09:46] VITALS: BP 145/78; PULSE 77; RESP 17; TEMP 36.9; O2SAT 95; BMI 40.3
--- NOTE | 2024-07-30 10:10 | XRR_ITS ---
PROCEDURE INFORMATION: Exam: XR Chest Exam date and time: 07/30/2024 10:21 AM Age: 78 years old Clinical indication: Cough and dyspnea; Additional info: Dyspnea/cough TECHNIQUE: Imaging protocol: Radiologic exam of the chest. Views: 1 view. COMPARISON: CR XR chest 1V portable [id number] 02/22/2021 12:53 PM FINDINGS: Lungs: There are low lung volumes causing some crowding of lung markings. Patchy infiltrate is noted involving the medial right lung base. Lungs are otherwise clear. Pleural spaces: Unremarkable. No pleural effusion. No pneumothorax. Heart/Mediastinum: The heart is slightly enlarged. There is calcified plaque involving the aorta. Diaphragm: There is elevation of the right hemidiaphragm. Bones/joints: Unremarkable. XR/XR chest 1V portable [id number] IMPRESSION: 1. Patchy infiltrate medial right lung base. Recommend follow-up to document resolution with appropriate therapy.
--- NOTE | 2024-07-30 10:17 | ED_ITS ---
HPI - URI/Sore Throat General: Chief Complaint: Upper Respiratory Infection Stated Complaint: sore throat, pain in ear Time Seen by Provider: 07/30/24 09:36 History of Present Illness: 78-year-old female presents to the [facility] ency room with complaints of congestion and cough. No hemoptysis no fever. No vomiting no diarrhea does complain of mild sore throat and ear congestion. Associated symptoms: Deny abdominal pain, chills, chest pain or fever(s) Related Data Home Medications Medication Instructions Recorded Confirmed aspirin 81 mg tablet,delayed 81 mg PO DAILY 06/25/20 07/30/24 release diltiazem HCl 180 mg 180 mg PO DAILY 07/30/24 07/30/24 capsule,extended release 24 hr glimepiride 2 mg tablet 2 mg PO DAILY 07/30/24 07/30/24 rivaroxaban 20 mg tablet (Xarelto) 20 mg PO DAILY 07/30/24 07/30/24 Previous Rx's Medication Instructions Recorded allopurinol 100 mg tablet 100 mg PO DAILY #30 tabs 06/22/23 sotalol 80 mg tablet 200 mg (2.5 x 80 mg) PO 10/28/23 DIRECTED #225 tabs levofloxacin 500 mg tablet 500 mg PO DAILY 7 days #7 tabs 07/30/24 Allergies Allergy/AdvReac Type Severity Reaction Status Date / Time amoxicillin Allergy Intermediate rash Verified 04/29/24 12:57 Penicillins Allergy Intermediate ALGY-Rash Verified 04/29/24 12:57 baclofen Allergy Mild numbness Verified 04/29/24 12:57 guaifenesin [From Mucinex] Allergy ALGY-Anaphy Verified 04/29/24 12:57 laxis hylan G-F 20 [From Synvisc] Allergy ADV-Weaknes Verified 04/29/24 12:57 s morphine AdvReac Intermediate Heart rate Verified 04/29/24 12:57 goes down and BP goes up Review of Systems Const: Denies: fever(s) or chills Card: Denies: chest pain Resp: Reports: dyspnea, non-productive cough and chest congestion GI: Denies: abdominal pain : Denies: dysuria, urinary frequency or urinary urgency Musc: Denies: neck pain or back pain Skin/Breast: Denies: rash PFSH ED PFSH: Medical History Osteoarthritis of knees, bilateral Solitary kidney, congenital Sleep apnea Atrial fibrillation Vitamin D deficiency Mixed hyperlipidemia Diabetes Hypertension Surgical History Hx of total knee arthroplasty Left 2022 Right 2022 LAP-BAND surgery status 2016 Family History Family/Other No problems noted. 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 Female Reproductive History: Spontaneous abortions: No Physical Exam Const: COMMON NORMALS: no acute distress GENERAL APPEARANCE: cooperative and comfortable ORIENTATION/CONSCIOUSNESS: Yes awake, Yes oriented to person, Yes oriented to place and Yes oriented to time HENMT: COMMON NORMALS: normocephalic, atraumatic and hearing grossly normal bilaterally HEAD & SCALP: normocephalic and atraumatic Resp: COMMON NORMALS: normal respiratory effort, No retractions, No use of accessory muscles and clear to auscultation bilaterally AUSCULTATION: clear to auscultation bilaterally Cardio: COMMON NORMALS: regular rate, regular rhythm and No murmurs present (Cardio) RATE: regular rate RHYTHM: regular rhythm GI: COMMON NORMALS: Soft to palpation and No hepatosplenomegaly present AUSCULTATION: Yes normoactive bowel sounds PALPATION: Yes Soft to palpation, No Tenderness to palpation present (GI), No Guarding due to palpation present (GI) and Yes No hepatosplenomegaly present Extremity: COMMON NORMALS: normal to inspection, capillary refill normal, no clubbing, cyanosis or edema, no calf tenderness and no pedal edema Neuro: SENSORIUM/ORIENTATION: Yes oriented to person, Yes oriented to place and Yes oriented to time Skin: COMMON NORMALS: no rashes or lesions noted GENERAL SKIN EXAM: no rashes or lesions noted Course Vital Signs: Vital signs: Vital Signs Temperature 98.5 F 07/30/24 09:46 Pulse Rate 69 07/30/24 11:12 Respiratory Rate 17 07/30/24 09:46 Blood Pressure 126/65 07/30/24 11:12 Pulse Oximetry 94 07/30/24 11:12 Oxygen Delivery Me thod Room Air 07/30/24 09:46 MDM - URI/Sore Throat Medical Decision Making Chest x-ray shows right lower lobe pneumonia oxygen sats are normal no tachycardia vital signs otherwise stable no tachypnea. Will start her on Levaquin. She should follow-up with her primary care doctor repeat chest x-ray in 10 to 14 days sooner if has any worsening symptoms Lab Data Radiology Impressions Chest X-Ray 07/30/24 10:10 IMPRESSION: 1. Patchy infiltrate medial right lung base. Recommend follow-up to document resolution with appropriate therapy. Laboratory Results Coronavirus (PCR) Negative (Negative) 07/30/24 10:13 Influenza A (PCR) Negative (Negative) 07/30/24 10:13 Influenza Type B (PCR) Negative (Negative) 07/30/24 10:13 RSV (PCR) Negative (Negative) 07/30/24 10:13 All radiology interpretation(s) finalized by discharge Discharge Plan Discharge Patient Disposition: Home Clinical Impression: Pneumonia Condition: Stable Prescriptions: New levofloxacin 500 mg tablet 500 mg PO DAILY 7 Days Qty: 7 0RF No Action aspirin 81 mg tablet,delayed release (DR/EC) 81 mg PO DAILY allopurinol 100 mg tablet 100 mg PO DAILY Qty: 30 11RF sotalol 80 mg tablet 200 mg PO DIRECTED Qty: 225 0RF Rx Instructions: 120mg (1.5 tabs) in AM and 80mg (1 tab) in PM diltiazem HCl 180 mg capsule,extended release 24hr 180 mg PO DAILY glimepiride 2 mg tablet 2 mg PO DAILY Xarelto 20 mg tablet 20 mg PO DAILY Discharge Orders: Discharge ED (Routine); Ordered 07/30/24 Ordered By: Chriss Rodriguez Referrals: Autumn Cheng MD [Primary Care Provider] - Discharge Diet: Usual diet Discharge Activity: Increase activity as tolerated Patient Instructions: Pneumonia (ED), Opioid Safety, Pain Management Activity Restrictions/Additional Instructions: Thank you for choosing [facility] for your healthcare needs today. It is very important that you follow up as instructed or that you return to the Emergency Department should you have concerns or if your condition changes or worsens in any way. Chest x-ray shows pneumonia. You are given antibiotics start 1 pill a day for a week. You should follow-up with your primary care doctor. Coding Level of Care Code ED Imaging Nurse for Nathan Chacko
[2024-07-30 10:53] LABS: Covid PCR NEGATIVE (Negative); Influenza A NEGATIVE (Negative); Influenza B NEGATIVE (Negative); Respiratory Syncytial Virus Ce NEGATIVE (Negative)
[2024-07-30 11:12] VITALS: BP 126/65; PULSE 69; O2SAT 94
== END 2024-07-30 11:13 | disposition home or self-care (01) ==
PROVIDERS: Emergency Provider Family Medicine; PCP Family Medicine
DX: J18.9 Pneumonia, unspecified organism (principal); Z87.891 Personal history of nicotine dependence; E11.9 Type 2 diabetes mellitus without complications; I10 Essential (primary) hypertension; E78.2 Mixed hyperlipidemia
CPT/HCPCS: 0241U; 71045; 99284

== ENCOUNTER 2024-08-02 00:05 | Emergency (ER) | payer MEDICARE, OTHER, SELFPAY ==
[2024-08-02] VITALS (15 sets, daily range): BP systolic 148–168; BP diastolic 52–83; PULSE 70–75; RESP 20–28; TEMP 36.6; O2SAT 94–96; BMI 41.1
--- NOTE | 2024-08-02 00:14 | ECG_ITS ---
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 Measurements Intervals [place] Rate: 70 P: 87 TN: 199 QRS: -6 QRSD: 89 T: 57 QT: 407 QTc: 439 Interpretive Statements SINUS RHYTHM LOW QRS VOLTAGE IN PRECORDIAL LEADS [QRS DEFLECTION < 1.0 mV IN CHEST LEADS] MODERATE VOLTAGE CRITERIA FOR LVH, CONSIDER NORMAL VARIANT [MEETS CRITERIA IN ONE OF: R(aVL), S(V1), R(V5), R(V5/V6)+S(V1)] POSSIBLE SEPTAL MYOCARDIAL INFARCTION , PROBABLY OLD [30 ms Q WAVE IN V1/V2] Compared to ECG 02/27/2021 00:45:04 First degree AV block no longer present Myocardial infarct finding still present Electronically Signed On 08-03-2024 01:02:28 FINANCIAL INVESTMENT MANAGER by Tucker Wadsworth M.D. [email or web address]
--- NOTE | 2024-08-02 00:14 | XRR_ITS ---
PROCEDURE INFORMATION: Exam: XR Chest Exam date and time: 08/02/2024 12:26 AM Age: 78 years old Clinical indication: Cough and dyspnea; Additional info: Rll pneumonia, dyspnea TECHNIQUE: Imaging protocol: Radiologic exam of the chest. Views: 1 view. COMPARISON: CR (CHEST, ) 07/30/2024 10:21 AM FINDINGS: Lungs: Interval improvement of the lower lobe airspace opacities. Left upper lobe calcified granuloma. Pleural spaces: Unremarkable. No pleural effusion. No pneumothorax. Heart/Mediastinum: Unremarkable. No cardiomegaly. Vasculature: Aortic calcifications. Bones/joints: Unremarkable. XR/XR chest 1V portable [id number] IMPRESSION: Interval improvement of the lower lobe airspace opacities.
[2024-08-02 00:27] LABS: Basophils # 0.1 10^3/uL (0.0-0.1); Basophils % 0.5 %; Eosinophils # 0.3 10^3/uL (0.0-0.8); Eosinophils % 2.1 %; Hematocrit 39.3 % (36-47); Lymphocytes # 1.5 10^3/uL (0.8-4.8); Lymphocytes % 11.4 %; Mean Corpuscular Volume 93.3 fl (85-98); Mean Platelet Volume 10.4 fL (7.4-10.4); Monocytes # 1.3 10^3/uL (0.2-0.9); Monocytes % 10.2 %; Neutrophils # 9.65 10^3/uL (1.8-7.7); Neutrophils % 74.5 %; Nucleated Red Blood Cells % 0 %; Platelet Count 320 10^3/cmm (157-399); Red Blood Count 4.21 10^6/uL (3.85-5.65); Red Cell Distribution Width 14.8 % (12.1-15.1); White Blood Count 12.95 10^3/uL (3.29-11.43)
--- NOTE | 2024-08-02 00:41 | ED_ITS ---
HPI - SOB/Dyspnea 2 General: Chief Complaint: Shortness of Breath/Dyspnea Stated Complaint: SOB Time Seen by Provider: 08/02/24 00:08 History of Present Illness: HPI Narrative: Patient arrived via the EMS to the ER with complaints of shortness of breath began last week. Patient was diagnosed with pneumonia over the weekend like she is getting worse. She went into a coughing fit earlier tonight and feels like she cannot catch her breath. Patient is already on Levaquin. Patient received 2 DuoNebs on route. Patient says she does feel a lot better now Related Data Home Medications Medication Instructions Recorded Confirmed aspirin 81 mg tablet,delayed 81 mg PO DAILY 06/25/20 07/30/24 release diltiazem HCl 180 mg 180 mg PO DAILY 07/30/24 07/30/24 capsule,extended release 24 hr glimepiride 2 mg tablet 2 mg PO DAILY 07/30/24 07/30/24 rivaroxaban 20 mg tablet (Xarelto) 20 mg PO DAILY 07/30/24 07/30/24 Previous Rx's Medication Instructions Recorded allopurinol 100 mg tablet 100 mg PO DAILY #30 tabs 06/22/23 sotalol 80 mg tablet 200 mg (2.5 x 80 mg) PO 10/28/23 DIRECTED #225 tabs levofloxacin 500 mg tablet 500 mg PO DAILY 7 days #7 tabs 07/30/24 albuterol sulfate 90 mcg/actuation 2 inh inhalation Q6H PRN shortness 08/02/24 aerosol inhaler of breath or wheezing #8.5 grams Allergies Allergy/AdvReac Type Severity Reaction Status Date / Time amoxicillin Allergy Intermediate rash Verified 08/02/24 00:13 Penicillins Allergy Intermediate ALGY-Rash Verified 08/02/24 00:13 baclofen Allergy Mild numbness Verified 08/02/24 00:13 guaifenesin [From Mucinex] Allergy ALGY-Anaphy Verified 08/02/24 00:13 laxis hylan G-F 20 [From Synvisc] Allergy ADV-Weaknes Verified 08/02/24 00:13 s morphine AdvReac Intermediate Heart rate Verified 08/02/24 00:13 goes down and BP goes up Review of Systems 2 General: Reports: 10 or more systems reviewed and unremarkable except in HPI and below PFSH ED 2 PFSH: Medical History Osteoarthritis of knees, bilateral Solitary kidney, congenital Sleep apnea Atrial fibrillation Vitamin D deficiency Mixed hyperlipidemia Diabetes Hypertension Surgical History Hx of total knee arthroplasty Left 2022 Right 2022 LAP-BAND surgery status 2016 Family History Family/Other No problems noted. 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 Female Reproductive History: Spontaneous abortions: No Physical Exam 2 Const: COMMON NORMALS: no acute distress, average body habitus, patient oriented x3, no limitations, healthy appearing, alert and well nourished HENMT: COMMON NORMALS: normocephalic, atraumatic, hearing grossly normal bilaterally, external ears normal, Normal external nose present and moist oral mucous membranes HEAD & SCALP: normocephalic and atraumatic NOSE: Normal external nose present EXTERNAL EAR: Yes external ears normal Neck/C-Spine: COMMON NORMALS: no JVD Chest: COMMONS NORMALS: normal inspection of the chest and normal palpation of entire chest wall Resp: COMMON NORMALS: normal respiratory effort, No retractions, No use of accessory muscles and clear to auscultation bilaterally AUSCULTATION: clear to auscultation bilaterally Cardio: COMMON NORMALS: no JVD, regular rate, regular rhythm, S1 normal heart sound present, S2 normal heart sound present, No gallops present (Cardio), No clicks present (Cardio), No murmurs present (Cardio) and No rub (Cardio) R ATE: regular rate RHYTHM: regular rhythm HEART SOUNDS: S1 normal heart sound present and S2 normal heart sound present GI: COMMON NORMALS: Normal to inspection, nondistended, normoactive bowel sounds present, Soft to palpation, non-tender, No hepatosplenomegaly present and no masses PALPATION: Yes Soft to palpation and Yes No hepatosplenomegaly present Neuro: COMMON NORMALS: patient oriented x3 SENSORIUM/ORIENTATION: Yes alert Course 2 Vital Signs: Vital signs: Vital Signs Temperature 97.8 F 08/02/24 00:07 Pulse Rate 71 08/02/24 02:05 Respiratory Rate 22 H 08/02/24 02:05 Blood Pressure 168/64 08/02/24 02:00 Pulse Oximetry 95 08/02/24 02:05 Oxygen Delivery Me thod Room Air 08/02/24 01:30 MDM - SOB/Dyspnea Medical Decision Making Patient came to the ER by EMS after receiving 2 DuoNeb's treatment patient was O2 satting 95% on room air and is feeling significantly better. There was interval improvement in left lower lobe airspace's. Patient continued to feel better. Patient be discharged home. Lab Data 08/02/24 00:00 08/02/24 00:00 Labs/Radiology: Radiology Impressions Chest X-Ray 08/02/24 00:14 IMPRESSION: Interval improvement of the lower lobe airspace opacities. Laboratory Results WBC 12.95 10^3/uL (3.29-11.43) H 08/02/24 00:00 RBC 4.21 10^6/uL (3.85-5.65) 08/02/24 00:00 Hgb 12.20 g/dL (11.27-16.99) 08/02/24 00:00 Hct 39.3 % (36-47) 08/02/24 00:00 MCV 93.3 fl (85-98) 08/02/24 00:00 MCH 29.0 pg (27-33) 08/02/24 00:00 MCHC 31.0 g/dL (30-55) 08/02/24 00:00 RDW 14.8 % (12.1-15.1) 08/02/24 00:00 Plt Count 320 10^3/cmm (157-399) 08/02/24 00:00 MPV 10.4 fL (7.4-10.4) 08/02/24 00:00 Neut % (Auto) 74.5 % 08/02/24 00:00 Lymph % (Auto) 11.4 % 08/02/24 00:00 Duchesne % (Auto) 10.2 % 08/02/24 00:00 Eos % (Auto) 2.1 % 08/02/24 00:00 Baso % (Auto) 0.5 % 08/02/24 00:00 Neut # (Auto) 9.65 10^3/uL (1.8-7.7) H 08/02/24 00:00 Lymph # (Auto) 1.5 10^3/uL (0.8-4.8) 08/02/24 00:00 Duchesne # (Auto) 1.3 10^3/uL (0.2-0.9) H 08/02/24 00:00 Eos # (Auto) 0.3 10^3/uL (0.0-0.8) 08/02/24 00:00 Baso # (Auto) 0.1 10^3/uL (0.0-0.1) 08/02/24 00:00 Nucleated RBC % (auto) 0 % 08/02/24 00:00 Nucleated RBCs # 0.0 /100WBC 08/02/24 00:00 Sodium 138 mmol/L (136-145) 08/02/24 00:00 Potassium 5.1 mmol/L (3.5-5.1) 08/02/24 00:00 Chloride 103 mmol/L (98-107) 08/02/24 00:00 Carbon Dioxide 22 mmol/L (22-29) 08/02/24 00:00 Anion Gap 18.1 (5-19) 08/02/24 00:00 BUN 38 mg/dL (8-23) H 08/02/24 00:00 Creatinine 1.5 mg/dL (0.5-0.9) H 08/02/24 00:00 GFR Calculation Not Reportable 08/02/24 00:00 Glucose 162 mg/dL (65-115) H 08/02/24 00:00 Calculated Osmolality 299 mOsm/kg (285-295) H 08/02/24 00:00 Calcium 9.4 mg/dL (8.5-10.5) 08/02/24 00:00 Total Bilirubin 0.3 mg/dL (0.15-1.2) 08/02/24 00:00 AST 29 U/L (0-32) 08/02/24 00:00 ALT 33 U/L (0-33) 08/02/24 00:00 Alkaline Phosphatase 145 U/L (35-105) H 08/02/24 00:00 Total Protein 6.4 g/dL (6.6-8.7) L 08/02/24 00:00 Albumin 3.8 g/dL (3.5-5.2) 08/02/24 00:00 Globulin 2.6 g/dL (1.3-4.6) 08/02/24 00:00 All radiology interpretation(s) finalized by discharge Discharge Plan Discharge Patient Disposition: Home Clinical Impression: Pneumonia Qualifiers: Pneumonia type: due to unspecified organism Laterality: right Lung location: m iddle lobe of lung Qualified Code(s): J18.9 - Pneumonia, unspecified organism Condition: Stable Prescriptions: New albuterol sulfate 90 mcg/actuation HFA aerosol inhaler 2 inh inhalation Q6H PRN (Reason: shortness of breath or wheezing) Qty: 8.5 0RF No Action aspirin 81 mg tablet,delayed release (DR/EC) 81 mg PO DAILY allopurinol 100 mg tablet 100 mg PO DAILY Qty: 30 11RF sotalol 80 mg tablet 200 mg PO DIRECTED Qty: 225 0RF Rx Instructions: 120mg (1.5 tabs) in AM and 80mg (1 tab) in PM diltiazem HCl 180 mg capsule,extended release 24hr 180 mg PO DAILY glimepiride 2 mg tablet 2 mg PO DAILY Xarelto 20 mg tablet 20 mg PO DAILY levofloxacin 500 mg tablet 500 mg PO DAILY 7 Days Qty: 7 0RF Discharge Orders: Discharge ED (Routine); Ordered 08/02/24 Ordered By: Zac Ward Referrals: Autumn Cheng MD [Primary Care Provider] - 1 week Patient Instructions: Pneumonia (ED) Activity Restrictions/Additional Instructions: An albuterol inhaler has been sent to your pharmacy please pick it up and use it as directed. This is the same medicine you received in the ambulance on the way to the ER. Your lab work and x-ray showed improvement please continue the current regimen for the treatment of your pneumonia. Thank you for choosing [facility] for your healthcare needs today. Please realize that you were seen in the emergency department and that we are providing you with an emergency medical screening exam and this may not be a complete and all exclusive of all testing and/or medical workup we may need to determine your element or severity of your illness. It is very important that you follow-up as instructed with your primary care provider or specialist for the additional evaluation and to discuss your medical treatment plan. You may return to the emergency department should you have concerns or if your condition changes or worsens in any way. Coding Level of Care Code ED Livery Car Driver for Nathan Chacko
[2024-08-02 00:49] LABS: Alanine Aminotransferase 33 U/L (0-33); Albumin Level 3.8 g/dL (3.5-5.2); Alkaline Phosphatase 145 U/L (35-105); Anion Gap 18.1 (5-19); Aspartate Amino Transferase 29 U/L (0-32); Blood Urea Nitrogen 38 mg/dL (8-23); Calcium 9.4 mg/dL (8.5-10.5); Carbon Dioxide 22 mmol/L (22-29); Chloride 103 mmol/L (98-107); Globulin 2.6 g/dL (1.3-4.6); Glucose 162 mg/dL (65-115); Osmolality Calculated 299 mOsm/kg (285-295); Potassium 5.1 mmol/L (3.5-5.1); Sodium 138 mmol/L (136-145); Total Bilirubin 0.3 mg/dL (0.15-1.2); Total Protein 6.4 g/dL (6.6-8.7)
--- NOTE | 2024-08-02 03:41 | PC.NURSE ---
pt lost her phone and glasses on EMS truck. Nirmala brought pt in. This nurse called , [facility], and they stated they had belongings. Per [facility] EMS dispatcher, the same crew that brought pt in will be dropping off her belongings at her residence. I told pt this infomation.
== END 2024-08-02 04:41 | disposition home or self-care (01) ==
PROVIDERS: Emergency Provider Emergency Medicine; PCP Family Medicine
DX: J18.9 Pneumonia, unspecified organism (principal); Z87.891 Personal history of nicotine dependence; E11.9 Type 2 diabetes mellitus without complications; I10 Essential (primary) hypertension; E78.2 Mixed hyperlipidemia
CPT/HCPCS: 36415; 71045; 80053; 85025; 93005; 99285

== ENCOUNTER → 2024-09-28 14:51 | Outpatient (BNVA) | payer MEDICARE, OTHER, SELFPAY | PROVIDERS: PCP Family Medicine; Visit Provider Internal Medicine | DX: I48.0 Paroxysmal atrial fibrillation (principal); I10 Essential (primary) hypertension; G47.30 Sleep apnea, unspecified; E78.2 Mixed hyperlipidemia; E11.9 Type 2 diabetes mellitus without complications; Z79.01 Long term (current) use of anticoagulants | CPT/HCPCS: 99213 ==

== ENCOUNTER → 2024-12-23 14:50 | Outpatient (BNVA) | payer MEDICARE, OTHER, SELFPAY | PROVIDERS: PCP Family Medicine; Visit Provider Family Medicine | DX: I10 Essential (primary) hypertension (principal); I48.0 Paroxysmal atrial fibrillation; E78.2 Mixed hyperlipidemia; E11.9 Type 2 diabetes mellitus without complications; E55.9 Vitamin D deficiency, unspecified; E53.8 Deficiency of other specified B group vitamins; N18.31 Chronic kidney disease, stage 3a | CPT/HCPCS: 80048; 82306; 82607; 83036 ==

== ENCOUNTER → 2025-04-20 14:53 | Outpatient (BNVA) | payer MEDICARE, SELFPAY | PROVIDERS: PCP Family Medicine; Visit Provider Family Medicine | DX: E11.9 Type 2 diabetes mellitus without complications (principal); I10 Essential (primary) hypertension; I48.0 Paroxysmal atrial fibrillation; E78.2 Mixed hyperlipidemia; N18.31 Chronic kidney disease, stage 3a; R30.0 Dysuria | CPT/HCPCS: 80053; 80061; 82043; 83036; 84439; 84443; 85025; 87077; 87086; 87184 ==

== ENCOUNTER 2025-06-27 10:31 | Outpatient (CLI) | payer MEDICARE, SELFPAY ==
--- NOTE | 2025-06-27 10:36 | MM_ITS ---
WS: [id number] BILATERAL 3D TOMOSYNTHESIS DIGITAL SCREENING MAMMOGRAPHY WITH CAD CLINICAL INFORMATION: SCREENING HISTORY: Screening mammogram. No current complaints. COMPARISON: 2023 TECHNIQUE: Bilateral CC and MLO views. FINDINGS: Scattered fibroglandular densities bilaterally.Vascular calcification. New small ovoid nodule measuring 6 mm anterior LEFT breast near the 12 o'clock position. Recommend further evaluation with spot compression views and ultrasound. Unremarkable RIGHT breast IMPRESSION MM/MM scr BI tomosynthesis [id number] DENSITY: There are scattered areas of fibroglandular density. BI-RADS: 0 - Incomplete: Need additional imaging evaluation. FOLLOW UP: Need Additional Imaging Recommend LEFT breast diagnostic mammography and ultrasound.
== END 2025-06-27 10:32 | disposition home or self-care (01) ==
LOC: RAD 10:32
PROVIDERS: PCP Family Medicine; Visit Provider Family Medicine
DX: Z12.31 Encounter for screening mammogram for malignant neoplasm of breast (principal); R92.323 Mammographic fibroglandular density, bilateral breasts; N63.22 Unspecified lump in the left breast, upper inner quadrant
CPT/HCPCS: 77063; 77067

== ENCOUNTER → 2025-07-13 13:24 | Outpatient (BNVA) | payer MEDICARE, SELFPAY | PROVIDERS: PCP Family Medicine; Visit Provider Internal Medicine | DX: I48.91 Unspecified atrial fibrillation (principal); I12.9 Hypertensive chronic kidney disease with stage 1 through stage 4 chronic kidney disease, or unspecified chronic kidney disease; E11.22 Type 2 diabetes mellitus with diabetic chronic kidney disease; N18.31 Chronic kidney disease, stage 3a; Z79.84 Long term (current) use of oral hypoglycemic drugs | CPT/HCPCS: 99214 ==

== ENCOUNTER 2025-07-27 11:07 | Outpatient (CLI) | payer MEDICARE, SELFPAY ==
--- NOTE | 2025-07-27 11:15 | US_ITS ---
WS: [id number] ULTRASOUND BREAST LEFT TECHNIQUE: Ultrasound left breast focused area of concern. CLINICAL INFORMATION: mammo abnormal L breast lump COMPARISON: 06/27/2025 FINDINGS: Ultrasound LEFT breast the 12 o'clock position 5 cm from the nipple. There is a small cystic lesion compatible with an incidental benign cyst measuring approximately 2 x 4 x 4 mm. This corresponds to the mammographic findings. Recommend return to annual screening mammography. US/US breast LT limited* [id number] IMPRESSION: Recommend return to annual screening mammography. BI-RADS 2 benign Follow-up: 1 year
== END 2025-07-27 11:08 | disposition home or self-care (01) ==
LOC: RAD 11:08
PROVIDERS: PCP Family Medicine; Visit Provider Family Medicine
DX: N63.25 Unspecified lump in the left breast, overlapping quadrants (principal)
CPT/HCPCS: 76642; 81000; 87086

== ENCOUNTER → 2025-08-08 15:40 | Outpatient (BNVA) | payer MEDICARE, SELFPAY | PROVIDERS: PCP Family Medicine; Visit Provider Family Medicine | DX: I83.029 Varicose veins of left lower extremity with ulcer of unspecified site (principal); L97.929 Non-pressure chronic ulcer of unspecified part of left lower leg with unspecified severity | CPT/HCPCS: 87070; 87075; 87205 ==

== ENCOUNTER → 2025-08-10 09:19 | Outpatient (BNVA) | payer MEDICARE, SELFPAY | PROVIDERS: PCP Family Medicine; Visit Provider Thoracic Surgery (Cardiothoracic Vascular Surgery) | DX: I96 Gangrene, not elsewhere classified (principal); L97.222 Non-pressure chronic ulcer of left calf with fat layer exposed; L97.811 Non-pressure chronic ulcer of other part of right lower leg limited to breakdown of skin | CPT/HCPCS: 11042; 97597; 97598; 99213 ==

== ENCOUNTER → 2025-08-14 12:41 | Outpatient (BNVA) | payer MEDICARE, SELFPAY | PROVIDERS: PCP Family Medicine; Visit Provider Thoracic Surgery (Cardiothoracic Vascular Surgery) | DX: I96 Gangrene, not elsewhere classified (principal); I87.2 Venous insufficiency (chronic) (peripheral); L97.821 Non-pressure chronic ulcer of other part of left lower leg limited to breakdown of skin; L97.811 Non-pressure chronic ulcer of other part of right lower leg limited to breakdown of skin | CPT/HCPCS: 97597; 97598 ==

== ENCOUNTER 2025-08-18 08:59 | Outpatient (CLI) | payer MEDICARE, SELFPAY ==
--- NOTE | 2025-08-18 09:30 | USR_ITS ---
PROCEDURE INFORMATION: Exam: US Duplex Lower Extremity Veins, Bilateral Exam date and time: 08/18/2025 9:18 AM Age: 79 years old Clinical indication: Pain; Leg, lower; Bilateral; Additional info: Chronic ble wounds, with reflux TECHNIQUE: Imaging protocol: Real-time duplex ultrasound of the bilateral extremities with 2-D meyers scale, color Doppler flow and spectral waveform analysis including responses to compression and other maneuvers (when performed) with image documentation. Complete exam focused on the lower extremity veins. COMPARISON: US pelvic complete* [id number] 06/28/2021 8:38 AM FINDINGS: This exam is significantly limited. Patient reports very technically difficult study due to limited patient mobility, habitus and pain tolerance. Right deep veins: The right common femoral vein greater saphenous vein junction is not compressible. There is color Doppler flow here. The remainder of the deep venous system of the right lower extremity including the superficial femoral, proximal profunda femoral and popliteal veins are patent without thrombus, with normal Doppler waveforms, and with normal compressibility and/or augmentation response. Left deep veins: Unremarkable. The common femoral, femoral, proximal profunda femoral and popliteal veins are patent without thrombus. Normal Doppler waveforms. Normal compressibility and/or augmentation response. Superficial veins: Greater saphenous veins at the saphenofemoral junctions are patent bilaterally without thrombus. Soft tissues: There is generalized soft tissue subcutaneous edema. US/CV olivier dup insuk[facility]leen [facility] [id number] IMPRESSION: Very limited exam as detailed above. There is no definitive sonographic evidence of DVT given the limitations of the study. The right common femoral greater saphenous vein junction does not compress but does have Doppler flow without discrete visualized DVT. Yacht Rigger felt that the noncompressibility focally in this region was secondary to patient habitus and technical difficulty in this patient specifically in this location.
== END 2025-08-18 09:00 | disposition home or self-care (01) ==
PROVIDERS: PCP Family Medicine; Visit Provider Thoracic Surgery (Cardiothoracic Vascular Surgery)
DX: L97.221 Non-pressure chronic ulcer of left calf limited to breakdown of skin (principal); R09.89 Other specified symptoms and signs involving the circulatory and respiratory systems
CPT/HCPCS: 93970

== ENCOUNTER 2025-08-21 12:04 | Outpatient (CLI) | payer MEDICARE, SELFPAY ==
--- NOTE | 2025-08-21 12:15 | USR_ITS ---
PROCEDURE INFORMATION: Exam: US Duplex Left Lower Extremity Arteries Or Arterial Bypass Grafts Exam date and time: 08/21/2025 12:16 PM Age: 79 years old Clinical indication: Condition or disease; Peripheral vascular disease; Additional info: Chronic wounds to ble TECHNIQUE: Imaging protocol: Left Real-time duplex scan of the arteries or arterial bypass grafts of the left lower extremity with 2-D meyers scale, color Doppler flow and spectral waveform analysis. Images documented and saved. COMPARISON: [place] [id number] 08/18/2025 9:18 AM FINDINGS: Left common femoral artery: No occlusion or significant stenosis. Normal waveform. Left superficial femoral artery: No occlusion or significant stenosis. Normal waveform. Left popliteal artery: No occlusion or significant stenosis. Normal waveform. Left calf/foot arteries: There are abnormal monophasic waveforms in the left posterior tibial artery. The left dorsalis pedis artery can not the accurately assessed due to wound bandages of the left ankle. The findings are suggestive of significant left lower extremity tibial artery disease. The ankle-brachial index could not be obtained due to the bandaging and wounds of the left ankle. There is subcutaneous edema in the soft tissues of the left lower leg. US/[place] [id number] IMPRESSION: 1. No suggestion of peripheral arterial disease above the knee as the left common femoral artery, superficial femoral artery in the popliteal artery are widely patent. 2. Significant left lower extremity tibial artery disease suspected as above.
== END 2025-08-21 12:05 | disposition home or self-care (01) ==
LOC: RAD 12:05
PROVIDERS: PCP Family Medicine; Visit Provider Thoracic Surgery (Cardiothoracic Vascular Surgery)
DX: L97.221 Non-pressure chronic ulcer of left calf limited to breakdown of skin (principal); R93.6 Abnormal findings on diagnostic imaging of limbs; R60.0 Localized edema
CPT/HCPCS: 93926

== ENCOUNTER → 2025-08-23 10:59 | Outpatient (BNVA) | payer MEDICARE, SELFPAY | PROVIDERS: PCP Family Medicine; Visit Provider Thoracic Surgery (Cardiothoracic Vascular Surgery) | DX: I96 Gangrene, not elsewhere classified (principal); I87.2 Venous insufficiency (chronic) (peripheral); L97.821 Non-pressure chronic ulcer of other part of left lower leg limited to breakdown of skin; L97.811 Non-pressure chronic ulcer of other part of right lower leg limited to breakdown of skin | CPT/HCPCS: 97597 ==